=== PATIENT | male | born 1965 | race Caucasian/White ===

== ENCOUNTER 2023-07-12 22:17 | Inpatient (IN) | payer BC, SELFPAY ==
[2023-07-12] VITALS (7 sets, daily range): BP systolic 108–143; BP diastolic 77–92; BMI 29.3; BMI 29.2
[2023-07-12 16:58] LABS: % Basophils 0.4 % (0-2); % Eosinophils 0.1 % (0-6); % Immature Granulocytes 0.2 % (0-0.5); % Lymphocytes 17.7 % (20.5-51.1); % Monocytes 5.9 % (1.7-9.3); % Neutrophils 75.7 % (42.2-75.2); Absolute Lymphocytes 1.5 10^3/uL (1.2-3.4); Absolute Monocytes 0.5 10^3/uL (0.1-0.6); Absolute Neutrophils 6.3 10^3/uL (1.4-6.5); Hematocrit 41.5 % (39.0-52.0); Hemoglobin 14.7 g/dL (13.0-18.0); Mean Corp Hgb Conc. 35.4 g/dL (33.0-37.0); Mean Corpuscular Hgb 32.2 pg (27.0-31.0); Mean Platelet Volume 9.2 fL (7.4-10.4); Nucleated Red Blood Cells % 0 % (-); Platelet Count 250 10^3/uL (130-400); Red Blood Cell Count 4.56 10^6/uL (4.70-6.10); Red Cell Dist. Width 12.2 % (11.5-14.5); White Blood Cell Count 8.3 10^3/uL (4.8-10.8)
[2023-07-12 17:09] LABS: INR 1.01; PT 13.1 Sec (11.4-14.6)
[2023-07-12 17:24] LABS: Troponin I 0.014 ng/ml
[2023-07-12 17:27] LABS: ALT (SGPT) 42 U/L (0-50); AST (SGOT) 34 U/L (17-59); Albumin 4.9 g/dl (3.5-5.0); Alkaline Phosphatase 54 U/L (38-126); Blood Urea Nitrogen 19 mg/dl (9-20); Calcium 10.3 mg/dl (8.4-10.2); Carbon Dioxide 26 mmol/L (22-30); Chloride 99 mmol/L (98-107); Glucose 120 mg/dl (70-99); Potassium 5.4 mmol/L (3.5-5.1); Sodium 135 mmol/L (135-145); Total Bilirubin 0.9 mg/dl (0.2-1.3); Total Protein 7.7 g/dl (6.3-8.2); eGFR > 60.00
--- NOTE | 2023-07-12 20:15 | ED.GENMED ---
History of Present Illness
General
Chief Complaint: Chest Pain
Source: patient
Exam Limitations: none
Time Seen by Provider: 07/12/23 18:08
Nursing documentation reviewed up to this point in time: agreed with
Travel History
Have you had any contact with someone who has COVID-19?: No
Do you have any symptoms of coronavirus? Fever > 100 degrees, chills, cough, shortness of breath, sore throat, loss of taste or smell, muscle aches, or headache?: No
History of Present Illness
History of Present Illness:
57-year-old male with past medical history of CAD hypertension hyperlipidemia presenting to the emergency department today with concerns of chest pain for the past few weeks he has been needing nitroglycerin which has been a lot resolving symptoms
intermittently over the past few weeks but today required multiple doses and also had associated diaphoresis nausea and vomiting. Does have a history of CABG 2 years ago
Review of Systems
Review of Systems
Allergies reviewed?: Yes
All Other Systems: ROS reviewed and negative except as documented in HPI and ROS
Phy Exam
Physical Exam
Physical Exam:
GENERAL: Alert , in no apparent distress
EYE: pupils equal and reactive
NECK: Supple, no significant adenopathy.
ENT: o/p clr, mmm.
CARDIAC: Regular rate and rhythm .
LUNGS: Clear breath sounds bilaterally, no acute respiratory distress, no wheezes/rales/rhonchi
ABDOMEN: Soft, without focal tenderness, no r/g, no cvat
NEUROLOGICAL: Alert and oriented, no focal neuro deficits
SKIN: Warm and dry, skin intact.
MUSCULOSKELETAL: No edema, well perfused.
PSYCH: Normal and appropriate interaction.
Scores
Heart Score for Chest Pain Patients
STEMI patient?: No
History: Moderately Suspicious
ECG: Nonspecific Repolarization
Age: >45 - <65 years
Risk Factors: >/= 3 Risk Factors or History of CAD
Troponin: </= Normal Limit
Heart Score for Chest Pain Patients: 5
Heart Score Risk: 20.3% MACE over next 6 weeks
Course
Orders/Labs/Results
Orders:
Orders
07/12/23 16:33
EKG [Electrocardiogram (*1)] Urgent
Reason for Study: Chest Pain
EKG- Treatment ONCE
07/12/23 16:49
Complete Blood Count/With Diff Urgent
Comprehensive Metabolic Panel Urgent
PT/INR [Prothrombin Time] Urgent
Troponin I Urgent
07/12/23 19:41
EKG [Electrocardiogram (*1)] Urgent
Reason for Study: Chest Pain
EKG- Treatment ONCE
07/12/23 19:43
Troponin I Urgent
07/12/23 20:47
Admit/Transfer Patient As Directed
Co-Sign Provider:
Level of Care: Inpatient admission
Assign to:: Telemetry
Physician / Group: Racquel
Diagnosis: Unstable Angina
Reason for Telemetry: Chest Pain syndromes
Date to Stop Telemetry: 07/14/23
Time to Stop Telemetry: 11:00
Reason for Hospitalization: Cardiology consult, Heparin Drip
Expected length of stay greater than two midnights?: Yes
ELOS- Estimated Length of Stay in days: 3
I certify the patient meets the requirements for IP care: Yes
07/12/23 20:48
Code Status As Directed
Resuscitation Status: Full Code
07/12/23 20:59
Add On- LAB Routine
Tests Added?: BNP
07/12/23 21:05
Aspirin Chewable [Low Strength Aspirin] 182 mg PO NOW STA
07/12/23 21:11
Aspirin Chewable [Low Strength Aspirin] 162 mg PO NOW STA
07/14/23 11:00
DC Protocol for Telemetry ONCE
Abnormal Lab Results
07/12/23
16:49
RBC 4.56 L 10^6/uL
(4.70-6.10)
MCH 32.2 H pg
(27.0-31.0)
Neutrophils % 75.7 H %
(42.2-75.2)
Lymphocytes % 17.7 L %
(20.5-51.1)
Potassium 5.4 H mmol/L
(3.5-5.1)
Glucose 120 H mg/dl
(70-99)
Calcium 10.3 H mg/dl
(8.4-10.2)
07/12/23 16:49
07/12/23 16:49
Vital Signs
Initial and Last Documented VS:
Initial Vital Signs
Temp Pulse Resp BP Pulse Ox
98.9 F 75 18 133/92 98
07/12/23 16:42 07/12/23 16:42 07/12/23 16:42 07/12/23 16:42 07/12/23 16:42
Last Documented Vital Signs
Temp Pulse Resp BP Pulse Ox
98.9 F 72 18 126/86 96
07/12/23 16:42 07/12/23 21:00 07/12/23 21:00 07/12/23 20:01 07/12/23 21:00
MDM/Problems Addressed
MDM/Problems Addressed:
57-year-old male presenting to the emergency department today with concerns of chest discomfort intermittently initially over the past week or so has been taking nitro with relief today noticed worsening chest pressure with diaphoresis and nausea
took multiple doses of nitro to control symptoms. Does have a history of CABG 2 years ago. Initial EKG with T wave inversions V4 to V6 that were not present on previous EKG. Troponin negative with symptoms concerning for progressive anginal
symptoms. Plan to admit considering may represent unstable angina.
*Critical Care Note
Total Time (30-74mins, 75-104mins- exclusive of procedures): Not Applicable
ED Attending Note
-
Portions of this chart may have been created with voice recognition software.� Occasional wrong word or��sound alike� substitutions may have occurred due to the inherent limitations of voice recognition software.
Discharge Plan
Departure
Patient Disposition: Admit
Date of Disposition: 07/12/23
Time of Disposition: 21:15
Admit to: Telemetry
Admit to doctor: Htay
Presentation/result/management discussed w/ accepting MD/DO: Hospitalist
Patient with high blood pressure during this ER visit?: No
Condition: Good
Covid-19: Not Applicable
Discharge Problem:
Chest pain
Prescriptions:
No Action
Co Q-10
1 tab PO DAILY
Patient Comments:
unknown dose
Mvi, Adult
1 tab PO DAILY
Rogaine
1 appful topical DAILY
Patient Comments:
daily for 22 years, cutting back recently
acetaminophen 325 MG tablet
650 mg PO Q4HPRN PRN (Reason: mild pain,headache,temp >101F ) 0RF
aspirin 81 MG tablet,chewable
81 mg PO DAILY 0RF
cholecalciferol (vitamin D3) [Vitamin D3] 125 mcg (5,000 unit) Tablet
125 mcg PO DAILY
metoprolol tartrate 50 MG tablet
12.5 mg PO BID
magnesium Tablet
1 tab PO DAILY
potassium
1 tab PO DAILY
diphenhydramine HCl [Benadryl] 25 mg Capsule
25 mg PO PRN PRN (Reason: allergies)
ibuprofen 200 mg tablet
400 - 600 mg PO Q6HPRN PRN (Reason: moderate pain) Qty: 1 0RF
tramadol 50 mg tablet
50 mg PO Q6H PRN (Reason: severe pain) Qty: 10 0RF
Referrals:
UNKNOWN - PT DOES,NOT KNOW [Family Provider] -
Interventions
Interventions:
*Risk Screen - Suicide Last Done: 07/12/23 16:42
*General Assessment Last Done: 07/12/23 16:42
*Neglect/Abuse Screening Last Done: 07/12/23 16:42
ED- Fall Risk Assessment Last Done: 07/12/23 17:37
*ED COVID-19 Vaccine History Last Done: 07/12/23 16:42
ED- Cardiac Assessment Last Done: 07/12/23 17:37
Discharge Date and Time
Print Language: URDU
--- NOTE | 2023-07-12 20:17 | HPS.HSE ---
Family Physician
-
Family Physician: NOT KNOW UNKNOWN - PT DOES
Chief Complaint
-
Chest Pain, ECG Changes
History of Present Illness
Patient is a 57 y/o male past medical history of coronary artery disease s/p CABG in 2021, hypertension and hyperlipidemia who presents with chest pain. Patient reports daily episodes of chest pain over the past week. He reports sometimes chest
pains occurs with activity, but sometimes at rest. He reports taking nitro with improvement of his symptoms after about 20 minutes. He notes today he took the nitro which relieved his symptoms initially, but states pain recurred a few hours later.
Since the pain recurred so quickly he came to the emergency department for evaluation. He notes today's episode of chest pain was associated with some diaphoresis. He denies shortness of breath. Patient states he took an extra aspirin today due
to worsening symptoms.
Medical History
Past Medical History
Past Medical History: Reports Other
Additional Past Medical History:
Coronary Artery Disease
Essential Hypertension
Hyperlipidemia
Past Surgical History: Reports Other
Additional Past Surgical History:
Coronary Artery Bypass Graft
Microdiscectomy L4/L5
Tonsillectomy
Social History
Tobacco: Non-smoker
Alcohol: Occasional
Drug: Marijuana
Family History
Family History: Other (Father: CAD)
Allergies / Home Medications
Allergies reflects when Allergies were last updated in [facility].
Home Medications with original date entered in [facility]
Allergy/Medication List:
Allergies
Allergy/AdvReac Type Severity Reaction Status Date / Time
ragweed pollen Allergy Mild Runny nose Verified 07/12/23 16:42
codeine Allergy Unknown Verified 07/12/23 16:42
dog dander Allergy Swelling Verified 07/12/23 16:42
morphine AdvReac headache Verified 07/12/23 16:42
Home Medications
Co Q-10 1 tab PO DAILY Supplement 05/03/21
Mvi, Adult 1 tab PO DAILY Supplement 05/03/21
Rogaine 1 appful topical DAILY 05/03/21
acetaminophen 325 mg tablet 650 mg (2 x 325 mg) PO Q4HPRN PRN mild pain,headache,temp >101F 05/10/21
aspirin 81 mg chewable tablet 81 mg PO DAILY 05/10/21
cholecalciferol (vitamin D3) 125 mcg (5,000 unit) tablet (Vitamin D3) 125 mcg PO DAILY 01/25/23
metoprolol tartrate 50 mg tablet 12.5 mg PO BID 01/25/23
diphenhydramine HCl 25 mg capsule (Benadryl) 25 mg PO PRN PRN allergies 01/29/23
ibuprofen 200 mg tablet 400 - 600 mg (2 - 3 x 200 mg) PO Q6HPRN PRN moderate pain #1 tab 01/29/23
magnesium 1 tab PO DAILY 01/29/23
potassium 1 tab PO DAILY 01/29/23
tramadol 50 mg tablet 50 mg PO Q6H PRN severe pain #10 tabs 01/29/23
Review of Systems
-
A 12 point ROS was completed and negative except as noted: Yes
Constitutional: Denies Fever or Chills
Respiratory: Denies Cough or Trouble Breathing
Cardiac: Reports See HPI
Physical Exam
Vital Signs
Vital Signs
Temp Pulse Resp BP Pulse Ox
98.9 F 70 11 124/77 98
07/12/23 16:42 07/12/23 17:37 07/12/23 17:37 07/12/23 17:37 07/12/23 17:37
Physical Exam
General: Comfortable and Conversant
HEENT: Anicteric and Moist mucous membranes
Respiratory: Clear and Non Labored Respirations
Cardiac: S1/S2 and Regular Rhythm
GI: Soft and Non Tender
Rectal: Deferred by Provider
Musculoskeletal: No Clubbing, No Cyanosis and No Edema
Skin: Warm and Dry
Neuro: Awake, Alert, Oriented and Nonfocal/grossly intact
Psych: Calm
Laboratory Results
-
07/12/23 16:49
07/12/23 16:49
Laboratory Results
PT 13.1 Sec (11.4-14.6) 07/12/23 16:49
INR 1.01 07/12/23 16:49
Total Bilirubin 0.9 mg/dl (0.2-1.3) 07/12/23 16:49
AST 34 U/L (17-59) 07/12/23 16:49
ALT 42 U/L (0-50) 07/12/23 16:49
Alkaline Phosphatase 54 U/L (38-126) 07/12/23 16:49
Troponin I 0.014 ng/ml 07/12/23 16:49
Data Reviewed
-
Medical Tests (Nuc Med, Echo, EKG etc): Image Personally Visualized and interpreted (EKG)
Lab Data: Labs Reviewed by me
Impression/Plan
-
Chest Pain, suspect unstable angina
-Consult Cardiology
-Trend troponin
-Continue aspirin - Give additional 162mg now for total 324mg
-NPO after midnight for possible testing in AM
Hyperkalemia/Hypercalcemia, mild
-Stop potassium and calcium supplements
Essential Hypertension
-Continue metoprolol
Hyperlipidemia
-Patient reports he only takes his statin for the 2 weeks prior getting his blood work
-Resume high dose statin with Lipitor
DVT proph: Lovenox
Code Status: Full Code
[2023-07-12 20:26] LABS: Troponin I 0.016 ng/ml
--- NOTE | 2023-07-12 21:13 | W.PN.UPDATE ---
Update Note
Progress Note Update
This is an addendum to the H&P written by LOBO Dwyer on 07/12/2023.
Patient seen and examined independently with LOBO. 57-year-old male past medical history of CAD/NSTEMI status post CABG in 2021, hyperlipidemia, presenting with intermittent chest pressure for the past 9 days at rest which resolves with
nitroglycerin.
Chest is tender to palpation. EKG shows T wave inversions in leads V4 to V6. Slight elevation of troponin from 0.014-0.06. Likely unstable angina. Trend troponins, aspirin given, n.p.o. past midnight. Nitroglycerin for further chest pain.
Cardiology consulted. Labs show elevated potassium likely due to potassium supplementation. Hold potassium.
[2023-07-12] MEDS: LOW STRENGTH ASPIRIN 162 MG PO (21:24)
[2023-07-12 22:04] LABS: NT-proBNP 27.2 pg/ml
[2023-07-13] VITALS (18 sets, daily range): BP systolic 117–155; BP diastolic 70–106; BMI 28.8
[2023-07-13 03:21] LABS: Hemoglobin 15.4 g/dL (13.0-18.0); Mean Corp Hgb Conc. 34.2 g/dL (33.0-37.0); Mean Corpuscular Hgb 31.9 pg (27.0-31.0); Mean Corpuscular Volume 93.2 fL (80.0-94.0); Mean Platelet Volume 9.6 fL (7.4-10.4); Platelet Count 237 10^3/uL (130-400); Red Blood Cell Count 4.83 10^6/uL (4.70-6.10); Red Cell Dist. Width 12.3 % (11.5-14.5); White Blood Cell Count 8.4 10^3/uL (4.8-10.8)
[2023-07-13 03:49] LABS: Blood Urea Nitrogen 18 mg/dl (9-20); Calcium 10.3 mg/dl (8.4-10.2); Carbon Dioxide 24 mmol/L (22-30); Chloride 101 mmol/L (98-107); Estimated Creatinine Clearance 61 ml/min; Glucose 87 mg/dl (70-99); HDL Cholesterol 52 mg/dl; LDL Cholesterol, Calculated 55 mg/dl; Magnesium 2.2 mg/dl (1.6-2.3); Potassium 4.4 mmol/L (3.5-5.1); Sodium 137 mmol/L (135-145); Total Cholesterol 133 mg/dl (50-199); Triglyceride 134 mg/dl (10-149); Very Low Density Lipoprotein 26 mg/dl (0-30); eGFR > 60.00
[2023-07-13 04:04] LABS: Vitamin D, 25-OH*** 54.1 ng/mL (30-80)
[2023-07-13] MEDS: TOPROL XL 25 MG PO (08:44)
[2023-07-13] MEDS: LOW STRENGTH ASPIRIN 81 MG PO (08:44)
[2023-07-13 09:31] LABS: Glycohemoglobin (HgbA1c) 5.9 % (4.0-5.6)
--- NOTE | 2023-07-13 09:44 | CON.CAR ---
Addendum entered and electronically signed by Narinder Madison MD 07/13/23 11:42:
I saw and examined the patient.
The VENEER CUTTER's note was reviewed and I agree with the note.
57-year-old male with a history of coronary artery bypass grafting in 2021 who has had recurrent episodes of low-grade chest discomfort over the past week. Symptoms can last long periods of time or just last 10 to 20 minutes. He called his primary
orthopedic physician assistant and was given a prescription for nitroglycerin. He feels the nitroglycerin relieves his chest discomfort. He says within 20 minutes after he takes nitroglycerin the symptoms fully resolved. He was able to do some yard work this week.
He did some light yard work/mulching but states he did not took a nitroglycerin prior to doing so. Troponin up to 0.02 ECG without acute changes. Patient's had recurrent chest discomfort this morning. Patient has a history of underlying coronary
artery disease and coronary bypass grafting and has recurrent chest discomfort on a daily basis over the past week with report of improvement with nitroglycerin. Considering the above history, the high pretest probability and the possibility of
unstable symptoms plan for cardiac catheterization. Reviewed with patient who is also in agreement. Also reviewed with interventional cardiology.
Original Note:
Consultation
Consultation Request
Date/Time Consultation Requested: 07/12/23 23:30
Date/Time Consultation Performed: 07/13/23 09:00
Requesting Provider: Jael Henderson PA-C
Performing Provider: LUIS MANUEL Camargo for Dr. Madison
Reason for Consultation: Chest pain
Medical History
-
Chief Complaint: Chest pain
History of Present Illness:
Wan Garza is a 57-year-old male (known to Dr. Gus Fang, his primary orthopedic physician assistant), with coronary artery disease (CABG x 3 04/2021), dyslipidemia, and former smoker who presents with a chief complaint of chest discomfort. He had a CABG
here in April, with Dr. Escalera. He reports he has been feeling well until the past week. He reports having chest discomfort with activity. He is unable to describe the sensation. He called his orthopedic physician assistant. The plan was for
sublingual nitroglycerin until he could complete stress testing. He does receive relief with sublingual nitroglycerin after about 15 minutes. Yesterday, he became concerned because when he woke up he was in a pool of sweat. This is very abnormal
for him. He took a sublingual nitroglycerin. He reports he felt 'off' and did not eat all day. He has been taking short acting metoprolol in addition to long-acting metoprolol when he has to do any exertional activity hoping that will help him
avoid chest discomfort.
Past Medical History
Past Medical History: CAD and Hypercholesterolemia
Past Surgical History: Cardiac, Orthopedic, Tonsilectomy, Urological and Other (Robotic hernia repair)
Social History
Tobacco: Former Smoker
Alcohol: Occasional
Drug: None
Personal: Single
Living: Alone
Employment: Employed
Family History
Family History: Reviewed & Not Pertinent
Allergies / Home Medications
Allergy/AdvReac Type Severity Reaction Status Date / Time
codeine Allergy Unknown Verified 07/12/23 16:42
dog dander Allergy Swelling Verified 07/12/23 16:42
morphine Allergy headache Verified 07/12/23 21:13
ragweed pollen Allergy Runny nose Verified 07/12/23 21:13
�Medication �Instructions �Recorded �Confirmed �Type
coenzyme Q10 200 mg capsule (Co 200 mg PO DAILY Supplement ##0 05/03/21 07/12/23 History
Q-10)
multivitamin 1 tab PO DAILY Supplement ##0 05/03/21 07/12/23 History
cholecalciferol (vitamin D3) 125 125 mcg PO DAILY 01/25/23 07/12/23 History
mcg (5,000 unit) tablet (Vitamin
D3)
metoprolol tartrate 50 mg tablet 50 mg PO DAILY 01/25/23 07/12/23 History
ascorbic acid (vitamin C) 1,000 mg 1,000 mg PO DAILY 07/12/23 07/12/23 History
tablet (Vitamin C)
aspirin 81 mg chewable tablet 81 - 162 mg PO DAILY 07/12/23 07/12/23 History
atorvastatin 40 mg tablet 40 mg PO DAILY 07/12/23 07/12/23 History
magnesium 250 mg tablet 250 mg PO DAILY 07/12/23 07/12/23 History
metoprolol succinate 25 mg 25 mg PO DAILY 07/12/23 07/12/23 History
tablet,extended release 24 hr
nitroglycerin 0.4 mg sublingual 0.4 mg sublingual [id number] PRN 07/12/23 07/12/23 History
tablet chest pain
sildenafil 100 mg tablet 100 mg PO DAILY PRN ed 07/12/23 07/12/23 History
Review of Systems
-
History Source: Patient
All other systems: Negative unless noted
Constitutional: No Symptoms
EENT: No Symptoms
Respiratory: No Symptoms
Cardiac: No Symptoms
Abdomen/GI: No Symptoms
Physical Exam
Vital Signs
Temp Pulse Resp BP Pulse Ox
98.4 F 73 16 117/70 96
07/13/23 07:37 07/13/23 07:37 07/13/23 07:37 07/13/23 07:37 07/13/23 07:37
Lab Results
07/13/23 02:52
07/13/23 02:52
Troponin I 0.020 ng/ml 07/13/23 02:52
Zht-C-Nytftqzoutr Pept 27.2 pg/ml 07/12/23 19:43
Physical Exam
General: Well Developed, Well Nourished, No Apparent Distress and Comfortable
HEENT: Normocephalic, Anicteric and Moist Mucous Membranes
Respiratory: Clear and Non Labored Respirations
Cardiac: S1/S2 and Regular Rhythm; Negative Peripheral Edema
Breast: Deferred by me
GI: Soft, Non Tender, Non Distended and Normal Bowel Sounds
Rectal: Deferred by Provider
Genito-urinary: No Costovertebral Tender
Musculoskeletal: No Clubbing, No Cyanosis and No Edema
Skin: Warm and Dry
Neuro: AO x 3
Hematologic/Lymphatic: No Lymphadenopathy
Psych: Calm
Impression / Plan
-
Chest pain
-Reports less than 5 minutes of chest pain at approximately 8 AM this morning, resolved spontaneously
-Gets relief with SL NTG
-Troponin appear flat
CAD
-On ASA & beta efrem
-Some nonadherence with statin therapy
-CABG x 3 (SAMSON-LAD, SVG-GARO-OM, AO-SVG-PDA) 05/06/[address] Escalera
HLD, now back on statin, LDL 55, continue atorvastatin 40 mg
Pre-diabetes, Hgba1c 5.9%
Former smoker, continued cessation recommended
--- NOTE | 2023-07-13 11:20 | W.PN.HOSP.TC ---
Today's Communication/Plan
-
.
Assessment / Plan
Assessment / Plan
Physical Exam
General: Well Developed, Well Nourished, No Apparent Distress and Comfortable
HEENT: Normocephalic, Anicteric and Moist Mucous Membranes
Respiratory: Clear and Non Labored Respirations
Cardiac: S1/S2 and Regular Rhythm; Negative Peripheral Edema
GI: Soft, Non Tender, Non Distended and Normal Bowel Sounds
Genito-urinary: No Costovertebral Tender
Musculoskeletal: No Clubbing, No Cyanosis and No Edema
Skin: Warm and Dry
Neuro: AO x 3
Psych: Calm
#Chest Pain, suspect unstable angina
The patient gives good story for cardiac related angina. Troponin remained negative
c/w aspirin & BB.
Appreciate cardiology input.
# Hyperkalemia/Hypercalcemia, mild
K is 4.4 today
- will advise to decrease potassium and calcium supplements
# Essential Hypertension
-Continue metoprolol
#Hyperlipidemia
-Patient reports he only takes his statin for the 2 weeks prior getting his blood work
-Resume high dose statin with Lipitor
DVT proph: Lovenox
Code Status: Full Code
Total time spent to see patient, examine the patient on the floor, review data and lab results, discuss treatment plan with patient, nursing staff around 55 minutes
Anticipated Discharge: Within 24 hours
Subjective/Interval History
-
Date of Service: July 13, 2023
No chest pain this morning
No sob
Some ringing in left ear
Objective Data
-
Labs:
Laboratory Results
07/13/23
02:52
WBC 8.4
Hgb 15.4
Hct 45.0
Plt Count 237
Sodium 137
Potassium 4.4
Chloride 101
Carbon Dioxide 24
BUN 18
Creatinine 1.2
Glucose 87
Calcium 10.3 H
Vital Signs:
Vital Signs
Temp Pulse Resp BP Pulse Ox
98.4 F 73 16 117/70 96
07/13/23 07:37 07/13/23 07:37 07/13/23 07:37 07/13/23 07:37 07/13/23 07:37
I&O
07/12/23 07/13/23 07/14/23
06:59 06:59 06:59
Intake Total 480 / 480
Balance 480 / 480
[2023-07-13 11:46] LABS: Troponin I 0.018 ng/ml
[2023-07-13] MEDS: PROTONIX 40 MG PO (12:39)
[2023-07-13 14:19] LABS: ACT-LR - POC 337 Seconds (116-155)
--- NOTE | 2023-07-13 14:53 | ITS.CL.CATH ---
Primary Care Sales Representative - Catheterization
Cardiac Catheterization
Procedure Report:
CARDIAC CATHETERIZATION REPORT
Date of Procedure: 07/13/2023
Referring: Narinder Madison MD
Indication: Recurrent nitrate responsive chest discomfort with prior CABG x 3 (05/06/2021)
HEMODYNAMIC DATA
AO: 118/72
LV: 118/11
LEFT VENTRICULOGRAPHY: Normal left ventricular wall motion with EF 65%
CORONARY ANGIOGRAPHY
Dominance: Right
Left Main: 30% distal stenosis
LAD: Diffuse moderate to severe proximal and mid LAD disease. The distal LAD fills antegrade and via a widely patent CARRIE graft. The CARRIE graft touches down into the distal LAD with good runoff through a 70% stenosis approximately 20 mm distal to
the touchdown site. There is a 70% apical LAD stenosis at the bifurcation of the whale's tail branches. There is retrograde flow in the LAD from the CARRIE graft to supply multiple septal perforators and two medium size diagonal branches.
Circumflex: The circumflex gives rise to a small OM1 and a large OM 2 before continuing on in the AV groove to supply two medium sized left posterolateral branches. There is 50% stenosis in the midportion of OM 2-the distal vessel fills antegrade
and via a widely patent vein graft
RCA: The RCA is occluded in the midportion. A patent free GARO graft supplies the relatively small RPDA
Bypass grafts:
1. The left internal mammary graft to the LAD is widely patent
2. The saphenous vein graft to the large OM 2 is widely patent with excellent runoff
3. The free radial graft to the distal RCA is patent with runoff into a medium sized RPDA. The RPL branch appears diffusely diseased and significantly smaller than its appearance on the preop study from 2021
Angioplasty: At the conclusion of the diagnostic study we proceeded with stenting of the distal LAD lesion approximately 20 mm distal to the CARRIE graft touchdown site. Heparin was used for anticoagulation. Plavix 600 mg was administered the
procedure conclusion. A 6 Syrian 90 cm CARRIE guide was advanced to the CARRIE origin. A BMW wire was passed into the apical LAD. The stent was advanced to the lesion site and completely obstructed flow distal to the stent site consistent with a
significantly high-grade lesion. Direct stenting with a 3.0 x 12 Xience SIERRA was accomplished at 14 [place] and the stent was postdilated with a 3.0 NC trek to 16 [place]. The final angiographic result was outstanding. There were no procedural
complications.
Closure Device: 6 Syrian Angio-Seal RFA
Radiation (mGy): 414
DAP (cm2.Gy): 32.6
Fluoroscopy time: 5.1 minutes
CONCLUSIONS
1: Normal left ventricular function with EF 65%
2: Severe [place] multivessel CAD as described with patent SAMSON-LAD, free radial-distal RCA, and SVG-OM2 bypass grafts
3. Successful stenting of 70% distal LAD lesion using 3.0 x 12 Xience SIERRA with outstanding final result
4. Recommend dual antiplatelet therapy for 6-12 months and lifelong aspirin therapy
Copy to: Gus Fang MD, Sanju Montejo DO
Brian Barrera MD, [facility], [facility]
[2023-07-13] MEDS: NSS 1000 IV (15:15)
[2023-07-13] MEDS: LOVENOX 40 MG SC (17:35)
[2023-07-13] MEDS: LIPITOR 40 MG PO (17:36)
[2023-07-14 05:04] VITALS: BP 124/82
--- NOTE | 2023-07-14 05:09 | DOWNTIME ---
There was a [employer] Downtime on 07/14/2023 from 0100 to 07/14/2023 at 0439. Downtime documentation of patient's care, including medication administrations, has been reconciled in the electronic record per guidelines. Refer to the
patient's paper chart under the miscellaneous tab to see printed paper medication records and downtime forms.
[2023-07-14 05:18] VITALS: BMI 28.7
--- NOTE | 2023-07-14 05:30 | PTCARENOTE ---
Right groin site C/D/I w/ positive pedal pulses. Pt denies any chest pain. CAD packet given, education provided. Tele remains SR. Pt aware of POC, and can make needs known.
--- NOTE | 2023-07-14 05:30 | DOWNTIME ---
There was a [employer] Client [employer] Downtime on 07/14/2023 from 0100 to 07/14/2023 at 0439. Downtime documentation of patient's care, including medication administrations, has been reconciled in the electronic record per guidelines. Refer to the
patient's paper chart under the miscellaneous tab to see printed paper medication records and downtime forms.
[2023-07-14 05:36] LABS: Hematocrit 42.2 % (39.0-52.0); Hemoglobin 14.9 g/dL (13.0-18.0); Mean Corp Hgb Conc. 35.3 g/dL (33.0-37.0); Mean Corpuscular Hgb 32.8 pg (27.0-31.0); Mean Platelet Volume 9.4 fL (7.4-10.4); Platelet Count 220 10^3/uL (130-400); Red Blood Cell Count 4.54 10^6/uL (4.70-6.10); Red Cell Dist. Width 12.2 % (11.5-14.5); White Blood Cell Count 8.4 10^3/uL (4.8-10.8)
[2023-07-14 05:47] LABS: Blood Urea Nitrogen 15 mg/dl (9-20); Calcium 9.9 mg/dl (8.4-10.2); Carbon Dioxide 23 mmol/L (22-30); Chloride 101 mmol/L (98-107); Estimated Creatinine Clearance 57 ml/min; Glucose 108 mg/dl (70-99); HDL Cholesterol 45 mg/dl; LDL Cholesterol, Calculated 42 mg/dl; Potassium 4.3 mmol/L (3.5-5.1); Sodium 135 mmol/L (135-145); Total Cholesterol 115 mg/dl (50-199); Triglyceride 140 mg/dl (10-149); Very Low Density Lipoprotein 28 mg/dl (0-30); eGFR > 60.00
--- NOTE | 2023-07-14 06:18 | W.PN.HOSP.TC ---
Today's Communication/Plan
-
.dc
Assessment / Plan
Assessment / Plan
Physical Exam
General: Well Developed, Well Nourished, No Apparent Distress and Comfortable
HEENT: Normocephalic, Anicteric and Moist Mucous Membranes
Respiratory: Clear and Non Labored Respirations
Cardiac: S1/S2 and Regular Rhythm; Negative Peripheral Edema
GI: Soft, Non Tender, Non Distended and Normal Bowel Sounds
Genito-urinary: No Costovertebral Tender
Musculoskeletal: No Clubbing, No Cyanosis and No Edema
Skin: Warm and Dry
Neuro: AO x 3
Psych: Calm
#unstable angina
No recurrent pain. Feels better.
s/p stent of 70% distal LAD lesion with SIERRA on 07/13/23.
c/w aspirin & Plavix & Statin & BB.
Empiric PPI Tx.
Right groin, no swelling.
Appreciate cardiology input.
# Hyperkalemia/Hypercalcemia, mild
resolved.
# Essential Hypertension
-Continue metoprolol
#Hyperlipidemia
-Patient reports he only takes his statin for the 2 weeks prior getting his blood work
-Resume high dose statin with Lipitor
DVT proph: Lovenox
Code Status: Full Code
Total discharge time spent to see patient, examine the patient on the floor, review data and lab results, discuss discharge plan with patient, nursing staff around 65 minutes
Anticipated Discharge: Today
Subjective/Interval History
-
Date of Service: July 14, 2023
He is doing well
No chest pain
No sob
Objective Data
-
Labs:
Laboratory Results
07/14/23
05:14
WBC 8.4
Hgb 14.9
Hct 42.2
Plt Count 220
Sodium 135
Potassium 4.3
Chloride 101
Carbon Dioxide 23
BUN 15
Creatinine 1.3
Glucose 108 H
Calcium 9.9
Vital Signs:
Vital Signs
Temp Pulse Resp BP Pulse Ox
98.7 F 84 16 124/82 96
07/14/23 05:04 07/14/23 05:04 07/14/23 05:04 07/14/23 05:04 07/14/23 05:04
I&O
07/12/23 07/13/23 07/14/23
06:59 06:59 06:59
Intake Total 480 / 480 480 / 480
Balance 480 / 480 480 / 480
[2023-07-14 07:01] VITALS: BP 118/84
--- NOTE | 2023-07-14 08:10 | PTCARENOTE ---
Patient resting in bed this morning, right groin dressing is dry and intact with a strong right pedal pulse. Patient denies any chest pain or sob. Scheduled for echo today.
[2023-07-14] MEDS: LOW STRENGTH ASPIRIN 81 MG PO (09:02)
[2023-07-14] MEDS: PLAVIX 75 MG PO (09:02)
[2023-07-14] MEDS: FLUSH (NSS) 1 FLUSH IV (09:03)
[2023-07-14] MEDS: PROTONIX 40 MG PO (09:03)
[2023-07-14] MEDS: TOPROL XL 25 MG PO (09:03)
--- NOTE | 2023-07-14 09:52 | CM ---
Reviewed chart. Met with Mr. Garza to review discharge plans. He states prior to admission he resides alone in a one story home with one step to enter. He states prior to admission he was independent with ambulation and adls. He states he
does not have nay DME in the home. He states he has a prescription plan and uses [facility]. Medical work-up in progress. The discharge plan is to return home when medically stable.
--- NOTE | 2023-07-14 10:44 | W.DCSUMMARY ---
Discharge Summary
Discharge Data
Date of Admission: 07/12/23
Date of Discharge: 07/14/23
-
Pending Results: No
Hospital Course
57 years old male admitted with recurrent chest pain that was responsive to nitroglycerin tablet. He did not have elevation troponin. Electrocardiogram was not suggestive of acute ischemia. Patient was evaluated by human resources assistant. Patient had
history of coronary artery disease. He underwent left heart catheterization through right groin area with stenting of 70% stenosis of left anterior descending artery with drug-eluting stent by Dr Barrera on 07/13/23. Open Claims Representative recommended dual
antiplatelet therapy for 6 to 12 months and lifelong aspirin therapy. Patient tolerated procedure well. He did not have recurrent chest pain. He was also advised to try Protonix and follow-up with his primary care doctor. He remained
hemodynamically stable and was discharged in a stable condition.
Discharge Plan
-
Patient Disposition: Home (Routine Discharge)
Discharge Diagnosis/Procedures: Unstable angina, angioplasty and stent to Left Anterior Descending artery
Possible gastroesophageal reflux disease, trial of Protonix and follow-up with your primary care doctor
Diet: Low Cholesterol and Low Sodium
Driving Restrictions: No driving for 24 hours
Other Services: Cardiac Rehab
Stand Alone Forms: DC Instructions- Cath/EP Lab
Referrals:
Sanju Montejo DO [Non-Admitting Privileges] - in one to two weeks
Gus Fang MD [Active] - in three to four weeks (Cardiology followup)
Prescriptions:
New
clopidogrel 75 mg Tablet
75 mg PO DAILY Qty: 30 0RF
pantoprazole 40 mg Tablet,Delayed Release (/Ec)
40 mg PO DAILY Qty: 30 0RF
Continued
coenzyme Q10 [Co Q-10] 200 mg Capsule
200 mg PO DAILY Qty: 0
multivitamin Tablet
1 tab PO DAILY Qty: 0
cholecalciferol (vitamin D3) [Vitamin D3] 125 mcg (5,000 unit) Tablet
125 mcg PO DAILY
atorvastatin 40 mg tablet
40 mg PO DAILY
Patient Comments:
07/12/2023: Will only take with Co Q-10
ascorbic acid (vitamin C) [Vitamin C] 1,000 mg Tablet
1,000 mg PO DAILY
sildenafil 100 mg tablet
100 mg PO DAILY PRN (Reason: ed)
nitroglycerin 0.4 mg tablet, sublingual
0.4 mg sublingual [id number] PRN (Reason: chest pain)
Patient Comments:
07/12/2023: took a previous dose @ 1130
magnesium 250 mg Tablet
250 mg PO DAILY
metoprolol succinate 25 mg tablet extended release 24 hr
25 mg PO DAILY
aspirin 81 MG tablet,chewable
81 mg PO DAILY Qty: 0 0RF
Discharge Orders:
Discharge Patient (As Directed); Ordered 07/14/23
Ordered By: Abbey Massey
Care Plan Goals
Care Plan Goals:
Problem: Readiness for enhanced knowledge related to diagnosis and treatment plan
Goal: Understand your diagnosis and treatment plan needs, including medications if applicable.
Instructions: Know your diagnosis, underlying causes and treatment plan options, including medications if applicable. Consult with your health care team to learn about your diagnosis and treatment plan, including medications if applicable.
Discharge Date and Time
Print Language: NEPALI
--- NOTE | 2023-07-14 10:59 | W.PN.CD ---
Today's Communication / Plan
-
home on DAPT/ppi
ARB as an outpatient if bp remains high
Impression / Plan
-
CP:
-may have been angina but will add ppi given distal lesion, DAPT
-he is feeling better this am
CAD
-On ASA & beta efrem
-reports low bp at home if still elevated on follow up will add arb
-Some nonadherence with statin therapy
-CABG x 3 (SAMSON-LAD, SVG-GARO-OM, AO-SVG-PDA) 05/06/[address] Escalera
-07/13/23 Successful stenting of 70% distal LAD lesion using 3.0 x 12 Xience SIERRA with outstanding final result
HLD, now back on statin, LDL 55, continue atorvastatin 40 mg
Pre-diabetes, Hgba1c 5.9%
Former smoker, continued cessation recommended
Subjective:
-he is feeling much better today
-he had no cp or sob.
CARDIAC CATHETERIZATION REPORT
Date of Procedure: 07/13/2023
Referring: Narinder Madison MD
Indication: Recurrent nitrate responsive chest discomfort with prior CABG x 3 (05/06/2021)
HEMODYNAMIC DATA
AO: 118/72
LV: 118/11
LEFT VENTRICULOGRAPHY: Normal left ventricular wall motion with EF 65%
CORONARY ANGIOGRAPHY
Dominance: Right
Left Main: 30% distal stenosis
LAD: Diffuse moderate to severe proximal and mid LAD disease. The distal LAD fills antegrade and via a widely patent CARRIE graft. The CARRIE graft touches down into the distal LAD with good runoff through a 70% stenosis approximately 20 mm distal to
the touchdown site. There is a 70% apical LAD stenosis at the bifurcation of the whale's tail branches. There is retrograde flow in the LAD from the CARRIE graft to supply multiple septal perforators and two medium size diagonal branches.
Circumflex: The circumflex gives rise to a small OM1 and a large OM 2 before continuing on in the AV groove to supply two medium sized left posterolateral branches. There is 50% stenosis in the midportion of OM 2-the distal vessel fills antegrade
and via a widely patent vein graft
RCA: The RCA is occluded in the midportion. A patent free GARO graft supplies the relatively small RPDA
Bypass grafts:
1. The left internal mammary graft to the LAD is widely patent
2. The saphenous vein graft to the large OM 2 is widely patent with excellent runoff
3. The free radial graft to the distal RCA is patent with runoff into a medium sized RPDA. The RPL branch appears diffusely diseased and significantly smaller than its appearance on the preop study from 2021
Angioplasty: At the conclusion of the diagnostic study we proceeded with stenting of the distal LAD lesion approximately 20 mm distal to the CARRIE graft touchdown site. Heparin was used for anticoagulation. Plavix 600 mg was administered the
procedure conclusion. A 6 [place] 90 cm CARRIE guide was advanced to the CARRIE origin. A BMW wire was passed into the apical LAD. The stent was advanced to the lesion site and completely obstructed flow distal to the stent site consistent with a
significantly high-grade lesion. Direct stenting with a 3.0 x 12 Xience SIERRA was accomplished at 14 [place] and the stent was postdilated with a 3.0 NC trek to 16 [place]. The final angiographic result was outstanding. There were no procedural
complications.
Closure Device: 6 [place] Angio-Seal RFA
CONCLUSIONS
1: Normal left ventricular function with EF 65%
2: Severe makah multivessel CAD as described with patent SAMSON-LAD, free radial-distal RCA, and SVG-OM2 bypass grafts
3. Successful stenting of 70% distal LAD lesion using 3.0 x 12 Xience SIERRA with outstanding final result
4. Recommend dual antiplatelet therapy for 6-12 months and lifelong aspirin therapy
Physical Exam
Vital Signs/Labs
Vital Signs
Temp Pulse Resp BP Pulse Ox
98.5 F 76 16 118/84 95
07/14/23 07:00 07/14/23 08:00 07/14/23 07:00 07/14/23 07:01 07/14/23 07:00
07/13/23 07/14/23 07/15/23
06:59 06:59 06:59
Actual Weight 80.824 kg 80.6 kg
07/14/23 05:14
07/14/23 05:14
PT 13.1 Sec (11.4-14.6) 07/12/23 16:49
INR 1.01 07/12/23 16:49
Magnesium 2.2 mg/dl (1.6-2.3) 07/13/23 02:52
Triglycerides 140 mg/dl (10-149) 07/14/23 05:14
LDL Cholesterol, Calc 42 mg/dl 07/14/23 05:14
VLDL Cholesterol, Calc 28 mg/dl (0-30) 07/14/23 05:14
HDL Cholesterol 45 mg/dl 07/14/23 05:14
07/12/23
19:43
Wnr-E-Yahjaswgspm Pept 27.2
LAB Results
07/12/23 07/12/23 07/13/23
16:49 19:43 02:52
Troponin I 0.014 0.016 0.020
07/13/23
11:16
Troponin I 0.018
Physical Exam
Constitutional: No acute distress
Cardiovascular: Rhythm & rate is regular, Pedal edema is absent, JVD pressure is normal, Systolic murmur absent and Diastolic murmur absent
Respiratory: Respiratory effort normal, Lungs clear to auscul., Wheeze Absent, Crackles Absent and Rhonchi Absent
Neuro/Psych: AO x 3
Other: Cath Site (RFA well healed no hematoma)
Data Reviewed
-
Date of Service: July 14, 2023
Medical Tests (PFT, Pathology etc): Discussed with Physician (Dr Massey, ok to discharge from our perspective, would add ppi)
[2023-07-14 11:33] VITALS: BP 142/96
--- NOTE | 2023-07-14 12:16 | PTCARENOTE ---
Echo done, patient seen by cardiology and ok for discharge. Reviewed discharge instructions, importance of compliance with plavix and follow up appointments, and he states his understanding. Patient awaiting ride home.
== END 2023-07-14 13:48 | disposition home or self-care (01) | DRG 322 ==
LOC: IVU 22:17
PROVIDERS: Internal Medicine Cardiovascular Disease; Nurse Practitioner; Nurse Practitioner Gerontology; Physician Assistant; Physician Assistant Medical; ADMITTING PHYSICIAN Hospitalist; ATTENDING PHYSICIAN Internal Medicine; EMERGENCY PHYSICIAN Emergency Medicine; OTHER PHYSICIAN Internal Medicine Cardiovascular Disease
PROC: B2111ZZ Fluoroscopy of Multiple Coronary Arteries using Low Osmolar Contrast (ICD-10-PCS; 2023-07-13)
PROC: 4A023N7 Measurement of Cardiac Sampling and Pressure, Left Heart, Percutaneous Approach (ICD-10-PCS; 2023-07-13)
PROC: 027034Z Dilation of Coronary Artery, One Artery with Drug-eluting Intraluminal Device, Percutaneous Approach (ICD-10-PCS; 2023-07-13)
PROC: B2151ZZ Fluoroscopy of Left Heart using Low Osmolar Contrast (ICD-10-PCS; 2023-07-13)
DX: I25.110 Atherosclerotic heart disease of native coronary artery with unstable angina pectoris (principal); Z87.891 Personal history of nicotine dependence; Z79.82 Long term (current) use of aspirin; E78.00 Pure hypercholesterolemia, unspecified; E87.5 Hyperkalemia; E83.52 Hypercalcemia; I10 Essential (primary) hypertension
CPT/HCPCS: 80048; 80053; 80061; 82306; 83036; 83735; 83880; 84484; 85025; 85027; 85347; 85610; 93005; 93306; 93459; 99285; C1725; C1760; C1769; C1874; C1887; C9600; Q9967

== ENCOUNTER 2023-08-05 18:49 | Emergency (ER) | payer BC, SELFPAY ==
[2023-08-05 18:52] VITALS: BP 149/88
[2023-08-05 19:12] LABS: % Basophils 0.4 % (0-2); % Eosinophils 1.1 % (0-6); % Immature Granulocytes 0.4 % (0-0.5); % Lymphocytes 24.9 % (20.5-51.1); % Monocytes 8.5 % (1.7-9.3); % Neutrophils 64.7 % (42.2-75.2); Absolute Eosinophils 0.1 10^3/uL (0-0.7); Absolute Lymphocytes 1.8 10^3/uL (1.2-3.4); Absolute Monocytes 0.6 10^3/uL (0.1-0.6); Absolute Neutrophils 4.6 10^3/uL (1.4-6.5); Hematocrit 40.3 % (39.0-52.0); Hemoglobin 14.2 g/dL (13.0-18.0); Mean Corp Hgb Conc. 35.2 g/dL (33.0-37.0); Mean Corpuscular Hgb 31.9 pg (27.0-31.0); Mean Corpuscular Volume 90.6 fL (80.0-94.0); Mean Platelet Volume 9.1 fL (7.4-10.4); Nucleated Red Blood Cells % 0 % (-); Platelet Count 241 10^3/uL (130-400); Red Blood Cell Count 4.45 10^6/uL (4.70-6.10); Red Cell Dist. Width 12.4 % (11.5-14.5); White Blood Cell Count 7.2 10^3/uL (4.8-10.8)
[2023-08-05 19:21] LABS: INR 0.98
[2023-08-05 19:22] LABS: APTT 29.7 Sec (23.4-35.0)
[2023-08-05 19:27] LABS: ALT (SGPT) 44 U/L (0-50); AST (SGOT) 30 U/L (17-59); Albumin 4.8 g/dl (3.5-5.0); Alkaline Phosphatase 52 U/L (38-126); Blood Urea Nitrogen 16 mg/dl (9-20); Calcium 10.1 mg/dl (8.4-10.2); Carbon Dioxide 23 mmol/L (22-30); Chloride 103 mmol/L (98-107); Glucose 108 mg/dl (70-99); Potassium 4.8 mmol/L (3.5-5.1); Sodium 136 mmol/L (135-145); Total Bilirubin 0.8 mg/dl (0.2-1.3); Total Protein 7.6 g/dl (6.3-8.2); eGFR > 60.00
[2023-08-05 19:36] LABS: Troponin I < 0.012 ng/ml
[2023-08-05 22:15] VITALS: BP 131/89; BMI 31.1
--- NOTE | 2023-08-05 23:12 | ED.GENMED ---
History of Present Illness
General
Chief Complaint: Chest Pain
Source: patient
Exam Limitations: none
Time Seen by Provider: 08/05/23 22:31
Travel History
Have you had any contact with someone who has COVID-19?: No
Do you have any symptoms of coronavirus? Fever > 100 degrees, chills, cough, shortness of breath, sore throat, loss of taste or smell, muscle aches, or headache?: No
History of Present Illness
History of Present Illness:
This is a 58 year old male that comes in with c/o chest pain. States that 22 days ago he had a stent placed here. States that for 2 weeks after this he had no angina. Then the last 4 days he has pain in the left chest that comes and goes. States
that Wednesday night is lasted for about 30 min after eating a salad. States that for 10-20 min it would go away and the n1 hour later come back. On Wednesday in the morning he took a nitro and it went away. States that the rest of the day he was
fine. Today at 12:30pm he started with pain again for about 45 min and the it went away. Then at 3pm he took a nitro for chest pain again. States that at this time it is very mild. Denies any fever, chills, SOB, abd pain, nausea, vomiting, diarrhea,
headache, dizziness, urinary burning.
Past History
Past History
ED Past Medical History: CAD, Cancer (Skin CA), HTN, Hypercholesterolemia and Other (Gloria pains)
ED Past Surgical History: Cardiac (Bypass, Stent) and Tonsilectomy
Social History
Tobacco: Non-smoker
Alcohol: Occasional
Personal: Single
Review of Systems
Review of Systems
All Other Systems: ROS reviewed and negative except as documented in HPI and ROS
Constitutional: Reports no symptoms; Denies fever or chills
EENT: Reports no symptoms
Respiratory: Denies cough or trouble breathing
Cardiac: Reports chest pain
ABD/GI: Reports no symptoms; Denies abdominal pain, nausea, vomiting or diarrhea
: Reports no symptoms; Denies dysuria, frequency or urgency
Musculoskeletal: Reports no symptoms
Skin: Reports no symptoms
Neurological: Reports no symptoms; Denies dizzy or headache
Psychiatric: Reports no symptoms
Phy Exam
General Physical Exam
General Presentation: well appearing and no apparent distress
General age: appears stated age
General Skin: warm and dry
General Habitus: normal
General Mental: alert
General Hydration: appears well hydrated
ENT Exam
ENT Exam: TM's normal, pharynx normal and neck supple
Eye Exam
Eye Exam: EOMI
Cardiovascular Exam
Cardiovascular Exam: regular rate/rhythm, no edema and normal peripheral pulses
Pulmonary Exam
Pulmonary Exam: lungs clear, no respiratory distress, no rales, chest non tender, no crackles, no rhonchi, no wheezing and no cough
Gastrointestinal Exam
Gastrointestinal Exam: normal bowel sounds, non tender, soft, no organomegaly, no pulsatile mass and non distended
Musculoskeletal Exam
Musculoskeletal Exam: full ROM and no edema
Skin Exam
Skin Exam: normal color, warm/dry, no rash and no petechia
Psychiatric Exam
Psychiatric Exam: normal mood/affect
Scores
Heart Score for Chest Pain Patients
STEMI patient?: No
History: Slightly or Non-Suspicious
ECG: Normal
Age: >45 - <65 years
Risk Factors: >/= 3 Risk Factors or History of CAD
Troponin: </= Normal Limit
Heart Score for Chest Pain Patients: 3
Heart Score Risk: 2.5% MACE over next 6 weeks
Course
Orders/Labs/Results
Orders:
Orders
08/05/23 18:55
Electrocardiogram (*1) Urgent
Reason for Study: Chest Pain
EKG- Treatment ONCE
08/05/23 19:05
Complete Blood Count/With Diff Urgent
Comprehensive Metabolic Panel Urgent
Protime/PTT Urgent
Troponin I Urgent
08/05/23 23:11
Electrocardiogram (*1) Urgent
Reason for Study: Chest Pain
Other Reason for Exam: Repeat with Troponin
EKG- Treatment ONCE
Troponin I Urgent
CR Chest - 2 Views Urgent
Comment:
Reason For Exam: Chest pain
Abnormal Lab Results
08/05/23
19:05
RBC 4.45 L 10^6/uL
(4.70-6.10)
MCH 31.9 H pg
(27.0-31.0)
Glucose 108 H mg/dl
(70-99)
08/05/23 19:05
08/05/23 19:05
Glucose nonfasting, PT 13.0 with INR 0.98, PTT 29.7, Troponin <0.012
Second Troponin <0.012
Vital Signs
Initial and Last Documented VS:
Initial Vital Signs
Temp Pulse Resp BP Pulse Ox
98.6 F 65 18 149/88 97
08/05/23 18:52 08/05/23 18:52 08/05/23 18:52 08/05/23 18:52 08/05/23 18:52
Last Documented Vital Signs
Temp Pulse Resp BP Pulse Ox
98.6 F 64 20 119/81 97
08/05/23 18:52 08/05/23 23:47 08/05/23 23:47 08/05/23 23:47 08/05/23 23:47
MDM/Problems Addressed
Differential Diagnosis Includes:
Angina, CAD
MDM/Problems Addressed:
This is a 58 year old male that comes in with c/o chest pain. States that he had a stent placed 22 days ago and was good for 2 weeks. Then he started with chest pain on and off. State that he has used Nitro twice recently with some relief and then
the pain comes back.
Will get labs, chest X-ray. , Explained to patient that he needs to follow up with his Land Management Supervisor tomorrow if the second troponin is normal. Patient is on Plavix and Aspirin.
Repeat ECG: rate 66, NSR, NOrmal axis. NOrmal QRS, Negative for ischemia. Nonspecific T wave inversion. Checked by Dr. Newman
Back into see patient. Explained that his Second Troponin is also normal. Will have patient follow up with his research anthropologist. Patient to return with any concerns. Explained that this may be due to the stent settling in.
Chronic conditions affecting care: CAD
Acute Exacerbation and/or Progression of Chronic Illness: CAD
*Radiology
Radiology exam reviewed: preliminary read by ED provider (Chest- Negative for active disease. )
*Pulse Oximetry
Patient hypoxic: no
*EKG
Interpreted by ED Provider?: Yes
Heart Rate: 60
Rate: normal
Rhythm: sinus
[place]: normal axis
Interval: normal interval
QRS Pattern: normal QRS
Ischemia: T-wave inversion (III, V5, V6)
*Cork Grinder Interpretation
Rate: normal
Heart Rate: 66
Rhythm: sinus
*Critical Care Note
Total Time (30-74mins, 75-104mins- exclusive of procedures): Not Applicable
ED Attending Note
-
Portions of this chart may have been created with voice recognition software.� Occasional wrong word or��sound alike� substitutions may have occurred due to the inherent limitations of voice recognition software.
Discharge Plan
Departure
Patient Disposition: Home (Routine Discharge)
Date of Disposition: 08/06/23
Time of Disposition: 01:11
Patient with high blood pressure during this ER visit?: No
Condition: Good
Covid-19: Not Applicable
Discharge Problem:
Chest pain
Instructions: Chest pain, Chest Pain NON-DHP Land Management Supervisor Follow Up
Prescriptions:
No Action
coenzyme Q10 [Co Q-10] 200 mg Capsule
200 mg PO DAILY Qty: 0
multivitamin Tablet
1 tab PO DAILY Qty: 0
cholecalciferol (vitamin D3) [Vitamin D3] 125 mcg (5,000 unit) Tablet
125 mcg PO DAILY
atorvastatin 40 mg tablet
40 mg PO DAILY
Patient Comments:
07/12/2023: Will only take with Co Q-10
ascorbic acid (vitamin C) [Vitamin C] 1,000 mg Tablet
1,000 mg PO DAILY
sildenafil 100 mg tablet
100 mg PO DAILY PRN (Reason: ed)
nitroglycerin 0.4 mg tablet, sublingual
0.4 mg sublingual [id number] PRN (Reason: chest pain)
Patient Comments:
07/12/2023: took a previous dose @ 1130
magnesium 250 mg Tablet
250 mg PO DAILY
metoprolol succinate 25 mg tablet extended release 24 hr
25 mg PO DAILY
clopidogrel 75 mg Tablet
75 mg PO DAILY Qty: 30 0RF
pantoprazole 40 mg Tablet,Delayed Release (Dr/Ec)
40 mg PO DAILY Qty: 30 0RF
aspirin 81 MG tablet,chewable
81 mg PO DAILY Qty: 0 0RF
Referrals:
Brian Barrera MD [Active] - As needed
NONE,* [Family Provider] -
Activity Restrictions/Additional Instructions:
As discussed, your blood work is normal along with both Troponin. Your Chest x-ray is normal. Please follow up with your Land Management Supervisor tomorrow. You have also been seen here by [facility] and you have been given the name of the Doctor. IF
YOU HAVE INCREASED OR CHANGING PAIN, OR YOU HAVE ANY OTHER CONCERNS PLEASE RETURN TO THE EMERGENCY ROOM.
Interventions
Interventions:
*Risk Screen - Suicide Last Done: 08/05/23 18:52
*General Assessment Last Done: 08/05/23 18:52
*Neglect/Abuse Screening Last Done: 08/05/23 18:52
ED- Fall Risk Assessment Last Done: 08/05/23 22:17
*ED COVID-19 Vaccine History Last Done: 08/05/23 18:52
ED- Cardiac Assessment Last Done: 08/05/23 22:17
Discharge Date and Time
Print Language: UKRAINIAN
[2023-08-05 23:47] VITALS: BP 119/81
[2023-08-06 00:44] LABS: Troponin I < 0.012 ng/ml
[2023-08-06 01:24] VITALS: BP 132/86
== END 2023-08-06 01:30 | disposition home or self-care (01) ==
LOC: EMR 18:49
PROVIDERS: Clinical Nurse Specialist Family Health; EMERGENCY PHYSICIAN Emergency Medicine
DX: R07.89 Other chest pain (principal); I25.10 Atherosclerotic heart disease of native coronary artery without angina pectoris; I10 Essential (primary) hypertension; E78.00 Pure hypercholesterolemia, unspecified
CPT/HCPCS: 99283; 71046; 80053; 84484; 85025; 85610; 85730; 93005

== ENCOUNTER → 2023-08-24 11:36 | Outpatient (REF) | payer BC, SELFPAY | LOC: DHCBC/DCA 11:36 | PROVIDERS: ATTENDING PHYSICIAN Internal Medicine Clinical Cardiac Electrophysiology; FAMILY PHYSICIAN Family Medicine | DX: R07.9 Chest pain, unspecified (principal) | CPT/HCPCS: 78452; 93017; A9500; J2785 ==

== ENCOUNTER 2024-01-15 23:22 | Inpatient (IN) | payer BC, SELFPAY ==
[2024-01-15 19:21] VITALS: BP 150/94
[2024-01-15 20:00] VITALS: BP 159/96
--- NOTE | 2024-01-15 20:02 | ED.GENMED ---
History of Present Illness
General
Chief Complaint: Abdominal Pain
Source: patient
Exam Limitations: none
Time Seen by Provider: 01/15/24 19:37
History of Present Illness
History of Present Illness:
This is a 58 year old male that comes in with c/o RLQ abd pain. States that this started last night and now the pain is starting to go across his lower abd. States that the pain has been constant. States that he is vomiting and nauseated. States
that he had a fever of 101 at home. Denies chills, chest pain, SOB, diarrhea, headache, dizziness, urinary burning.
Past History
Past History
ED Past Medical History: CAD, Cancer (Skin CA), HTN, Hypercholesterolemia and Other (Back pains)
ED Past Surgical History: Cardiac (Bypass, Stent), Orthopedic (Microdiscectomy L4-L5) and Tonsilectomy
Social History
Tobacco: Non-smoker
Alcohol: None
Personal: Single
Living: alone
Review of Systems
Review of Systems
All Other Systems: ROS reviewed and negative except as documented in HPI and ROS
Constitutional: Reports fever; Denies chills
EENT: Reports no symptoms
Respiratory: Reports no symptoms; Denies cough or trouble breathing
Cardiac: Reports no symptoms; Denies chest pain
ABD/GI: Reports abdominal pain, nausea and vomiting; Denies diarrhea
: Reports no symptoms; Denies dysuria, frequency or urgency
Musculoskeletal: Reports no symptoms
Skin: Reports no symptoms
Neurological: Reports no symptoms; Denies dizzy or headache
Psychiatric: Reports no symptoms
Phy Exam
General Physical Exam
General Presentation: mild distress
General age: appears stated age
General Skin: warm and dry
General Habitus: normal
General Mental: alert
General Hydration: dry mucous membranes
ENT Exam
ENT Exam: TM's normal, pharynx normal and neck supple
Eye Exam
Eye Exam: EOMI
Cardiovascular Exam
Cardiovascular Exam: regular rate/rhythm, no edema, no murmur and normal peripheral pulses
Pulmonary Exam
Pulmonary Exam: lungs clear, no respiratory distress, no rales, chest non tender, no crackles, no rhonchi, no wheezing and no cough
Gastrointestinal Exam
Gastrointestinal Exam: normal bowel sounds, soft, no organomegaly, no pulsatile mass, non distended and tender (Right lower quadrant abd pain with palpation )
Musculoskeletal Exam
Musculoskeletal Exam: full ROM and no edema
Skin Exam
Skin Exam: normal color, warm/dry, no rash and no petechia
Psychiatric Exam
Psychiatric Exam: normal mood/affect
Course
Orders/Labs/Results
Orders:
Orders
01/15/24 20:01
CT Abd/Pel (IV only)-DH only Urgent
Comment:
Reason For Exam: RLQ abd pain
IV Insert/Care/Rem.- Treatment PRN
Urinalysis Reflex To Culture Urgent
0.9% Sodium Chloride 1000 ml [Nss] 1,000 ml IV BOLUS
Ketorolac [Toradol] 30 mg IM NOW STA
Ondansetron Injectable [Zofran] 4 mg IV NOW STA
01/15/24 20:20
Complete Blood Count/With Diff Urgent
Comprehensive Metabolic Panel Urgent
Lipase Urgent
01/15/24 20:24
Ketorolac [Toradol] 30 mg IV NOW STA
01/15/24 22:15
Piperacillin/Tazo 3.375 Gram [Zosyn] 3.375 gram in 50 ml IV NOW
01/15/24 22:22
HYDROmorphone [Dilaudid] 1 mg IV NOW STA
Abnormal Lab Results
01/15/24
20:20
WBC 12.2 H 10^3/uL
(4.8-10.8)
MCH 31.1 H pg
(27.0-31.0)
Abs Immat Gran (auto) 0.1 H 10^3/uL
(0-0.05)
Absolute Neuts (auto) 10.6 H 10^3/uL
(1.4-6.5)
Absolute Lymphs (auto) 0.7 L 10^3/uL
(1.2-3.4)
Absolute Monos (auto) 0.9 H 10^3/uL
(0.1-0.6)
Neutrophils % 86.6 H %
(42.2-75.2)
Lymphocytes % 5.8 L %
(20.5-51.1)
Sodium 132 L mmol/L
(135-145)
Chloride 92 L mmol/L
(98-107)
Glucose 157 H mg/dl
(70-99)
01/15/24 20:20
01/15/24 20:20
Leukocytosis, Sodium slightly low. Chloride low. Hyperglycemia. Lipase normal at 38
Vital Signs
Initial and Last Documented VS:
Initial Vital Signs
Temp Pulse Resp BP Pulse Ox
98.9 F 80 26 150/94 96
01/15/24 19:21 01/15/24 19:21 01/15/24 19:21 01/15/24 19:21 01/15/24 19:21
Last Documented Vital Signs
Temp Pulse Resp BP Pulse Ox
99.2 F 83 12 154/94 99
01/15/24 20:34 01/15/24 21:00 01/15/24 21:00 01/15/24 21:00 01/15/24 20:00
MDM/Problems Addressed
Differential Diagnosis Includes:
Appendicitis, gallbladder disease
MDM/Problems Addressed:
This is a 58 year old male that comes in with c/o abd pain. States that this started last night and has continued. Patient is vomiting and has a fever,
will get labs and CT scan.
Back into see patient. Explained that his CT shows that he has a perforated appendicitis. Dr Elena notified and he will be on consult. Patient to go to Hospitalist. IV antibiotic ordered. Hospitalist notified.
Chronic conditions affecting care: CAD
Acute Exacerbation and/or Progression of Chronic Illness:
NA
*Radiology
Radiology exam reviewed: radiology read reviewed (CT night hawk- Perforated acutte appendicitis with a fluid-filled and dilated perforated appendix measuring up to 18mm, with extensive surrounding edema and inflammatory stranding that tracks along
the right paracolic gutter and perinephric fascia, and with intraperitoneal free air seen both along ) and all reviewed NAD by ED Provider (CT cont- along the liver. Stat surgery consultation is recommended. Trace perihepatic ascites. Coronary
artery calcifications. Additional findings: vascular calcifications. DJD. Colonic diverticulosis. Probable left renal cystic foci. )
*Pulse Oximetry
Patient hypoxic: no
*EKG
Interpreted by ED Provider?: NA
Rate: EKG- N/A
*Chlorine Plant Operator Interpretation
Rate: normal
Heart Rate: 84
Rhythm: sinus
*Critical Care Note
Total Time (30-74mins, 75-104mins- exclusive of procedures): Not Applicable
ED Attending Note
-
Portions of this chart may have been created with voice recognition software.� Occasional wrong word or��sound alike� substitutions may have occurred due to the inherent limitations of voice recognition software.
Discharge Plan
Departure
Patient Disposition: Admit
Date of Disposition: 01/15/24
Time of Disposition: 22:31
Admit to: Telemetry
Presentation/result/management discussed w/ accepting MD/DO: Hospitalist
Patient with high blood pressure during this ER visit?: Yes
Condition: Good
Covid-19: Not Applicable
Discharge Problem:
Acute perforated appendicitis
Prescriptions:
No Action
multivitamin Tablet
1 tab PO DAILY Qty: 0
cholecalciferol (vitamin D3) [Vitamin D3] 125 mcg (5,000 unit) Tablet
125 mcg PO DAILY
sildenafil 100 mg tablet
100 mg PO WEEKLY PRN (Reason: ED)
nitroglycerin 0.4 mg tablet, sublingual
0.4 mg sublingual [id number] PRN (Reason: chest pain)
Patient Comments:
07/12/2023: took a previous dose @ 1130
magnesium 250 mg Tablet
250 mg PO DAILY
metoprolol succinate 25 mg tablet extended release 24 hr
12.5 mg PO DAILY
clopidogrel 75 mg Tablet
75 mg PO DAILY Qty: 30 0RF
aspirin 81 MG tablet,chewable
81 mg PO DAILY Qty: 0 0RF
Referrals:
Sanju Montejo, DO [Family Provider] -
Interventions
Interventions:
*Risk Screen - Suicide Last Done: 01/15/24 19:21
*General Assessment Last Done: 01/15/24 20:13
*Neglect/Abuse Screening Last Done: 01/15/24 19:21
ED- Fall Risk Assessment Last Done: 01/15/24 20:34
*ED COVID-19 Vaccine History Last Done: 01/15/24 20:13
WF-Ekvqdg-Eahfkcufnn Assessment Last Done: 01/15/24 20:34
ED- Neurological Assessment Last Done: 01/15/24 20:34
ED-Skin Assessment Last Done: 01/15/24 20:34
Discharge Date and Time
Print Language: MAURITANIAN
[2024-01-15] MEDS: ZOFRAN 4 MG IV (20:22)
[2024-01-15] MEDS: NSS 1000 IV (20:22)
[2024-01-15] MEDS: TORADOL 30 MG IV (20:24)
--- NOTE | 2024-01-15 20:35 | EDRN ---
Pt with constant RLQ abdominal pain since 0 last night described as sharp in nature. Pt with nausea and vomiting, unable to keep anything down. Pt took tramadol for pain but says it came back up. Fever at home. Chills. Pt denies cp, sob,
cough, urinary symptoms, weakness, dizziness, diarrhea, constipation.
[2024-01-15 20:36] LABS: % Basophils 0.2 % (0-2); % Immature Granulocytes 0.4 % (0-0.5); % Lymphocytes 5.8 % (20.5-51.1); % Neutrophils 86.6 % (42.2-75.2); Absolute Immature Granulocytes 0.1 10^3/uL (0-0.05); Absolute Lymphocytes 0.7 10^3/uL (1.2-3.4); Absolute Monocytes 0.9 10^3/uL (0.1-0.6); Absolute Neutrophils 10.6 10^3/uL (1.4-6.5); Hematocrit 44.8 % (39.0-52.0); Hemoglobin 16.1 g/dL (13.0-18.0); Mean Corp Hgb Conc. 35.9 g/dL (33.0-37.0); Mean Corpuscular Hgb 31.1 pg (27.0-31.0); Mean Corpuscular Volume 86.7 fL (80.0-94.0); Mean Platelet Volume 9.4 fL (7.4-10.4); Nucleated Red Blood Cells % 0 % (-); Platelet Count 288 10^3/uL (130-400); Red Blood Cell Count 5.17 10^6/uL (4.70-6.10); Red Cell Dist. Width 12.3 % (11.5-14.5); White Blood Cell Count 12.2 10^3/uL (4.8-10.8)
[2024-01-15 20:50] LABS: ALT (SGPT) 37 U/L (0-50); AST (SGOT) 38 U/L (17-59); Albumin 4.9 g/dl (3.5-5.0); Alkaline Phosphatase 48 U/L (38-126); Blood Urea Nitrogen 20 mg/dl (9-20); Calcium 9.8 mg/dl (8.4-10.2); Carbon Dioxide 25 mmol/L (22-30); Chloride 92 mmol/L (98-107); Estimated Creatinine Clearance 72 ml/min; Glucose 157 mg/dl (70-99); Lipase 38 U/L (23-300); Sodium 132 mmol/L (135-145); Total Bilirubin 1.1 mg/dl (0.2-1.3); Total Protein 7.5 g/dl (6.3-8.2); eGFR > 60.00
[2024-01-15 21:00] VITALS: BP 154/94
[2024-01-15 22:32] VITALS: BP 110/85
[2024-01-15] MEDS: DILAUDID 1 MG IV (22:33)
[2024-01-15] MEDS: ZOSYN 50 IV (22:37)
[2024-01-15 23:00] VITALS: BP 126/84
--- NOTE | 2024-01-15 23:26 | HPS.HSE ---
Family Physician
-
Family Physician: Sanju Montejo
Chief Complaint
-
Abd pain
History of Present Illness
Patient is a 58y M with PMH significant for ASCVD who presents to ED complaining of abdominal pain. Patient states that his pain started yesterday around noon and has gradually increased since that time. Pain was initially diffusely across the
abdomen and then gradually localized to the RLQ. Patient states that he had nausea and had emesis with any attempts to eat, drink, take PO medications, etc. His pain worsened throughout the night and he was unable to sleep at all due to his level
of discomfort. Today with ongoing symptoms, patient presented to the ED for further evaluation.
Medical History
Past Medical History
Past Medical History: Reports Other
Additional Past Medical History:
ASCVD
DDD
Past Surgical History: Reports Other
Additional Past Surgical History:
PTCA with Stent to Distal LAD (07/13/23)
T&A
L4-5 Microdiscectomy
Ventral / Incisional Hernia Repair
CABG x 3 (2021)
Vasectomy
Social History
Tobacco: Non-smoker
Alcohol: Occasional (Rarely)
Family History
Family History: Other (Father: CAD)
Allergies / Home Medications
Allergies reflects when Allergies were last updated in [facility].
Home Medications with original date entered in [facility]
Allergy/Medication List:
Allergies
Allergy/AdvReac Type Severity Reaction Status Date / Time
codeine Allergy Unknown Verified 01/15/24 19:24
dog dander Allergy Swelling Verified 01/15/24 19:24
morphine Allergy headache Verified 01/15/24 19:24
ragweed pollen Allergy Runny nose Verified 01/15/24 19:24
Home Medications
multivitamin 1 tab PO DAILY Supplement ##0 05/03/21
cholecalciferol (vitamin D3) 125 mcg (5,000 unit) tablet (Vitamin D3) 125 mcg PO DAILY Supplement 01/25/23
magnesium 250 mg tablet 250 mg PO DAILY Electrolyte Repletion 07/12/23
metoprolol succinate 25 mg tablet,extended release 24 hr 12.5 mg PO DAILY Blood Pressure 07/12/23
nitroglycerin 0.4 mg sublingual tablet 0.4 mg sublingual [id number] PRN chest pain 07/12/23
sildenafil 100 mg tablet 100 mg PO WEEKLY PRN ED 07/12/23
aspirin 81 mg chewable tablet 81 mg PO DAILY Blood Clot Prevention/Tx #0 tabs 07/14/23
clopidogrel 75 mg tablet 75 mg PO DAILY #30 tabs 07/14/23
Review of Systems
-
History Source: Patient
A 12 point ROS was completed and negative except as noted: Yes
Constitutional: Reports Fatigue; Denies Fever or Chills
EENT: Denies Sore Throat
Respiratory: Denies Cough or Trouble Breathing
Cardiac: Denies Chest Pain or Palpitations
Abdomen/GI: Reports Abdominal Pain, Nausea, Vomiting and Anorexia; Denies Diarrhea, Constipated, Bloody Stools or Black Stools
: Denies Dysuria, Frequency or Flank Pain
Musculoskeletal: Denies Joint Pain or Edema
Neurological: Denies Dizzy or Headache
Psych: Denies Depression or Anxiety
Physical Exam
Vital Signs
Vital Signs
Temp Pulse Resp BP Pulse Ox
100.7 F H 103 13 110/85 99
01/15/24 22:40 01/15/24 22:32 01/15/24 22:32 01/15/24 22:32 01/15/24 20:00
Physical Exam
General: Other (58y M in mild distress due to pain.)
HEENT: Moist mucous membranes and PERRLA
Respiratory: Clear; No Wheezes, Rales or Rhonchi
Cardiac: S1/S2 and Regular Rhythm; No Murmur
GI: Soft, Non Distended and Other (Bowel sounds are diminished. Mild tenderness throughout - most severe at RLQ with pos guarding in this area.)
Musculoskeletal: No Clubbing, No Cyanosis and No Edema
Neuro: AO x 3
Laboratory Results
-
01/15/24 20:20
01/15/24 20:20
Laboratory Results
Total Bilirubin 1.1 mg/dl (0.2-1.3) 01/15/24 20:20
AST 38 U/L (17-59) 01/15/24 20:20
ALT 37 U/L (0-50) 01/15/24 20:20
Alkaline Phosphatase 48 U/L (38-126) 01/15/24 20:20
Lipase 38 U/L (23-300) 01/15/24 20:20
Impression/Plan
-
A/P: Patient is a 58y M with PMH significant for ASCVD who presents to ED complaining of abdominal pain x 24 hours.
Acute Perforated Appendicitis
Sepsis secondary to the above
- Admit for further evaluation and treatment.
- Patient presents with fever, tachycardia and leukocytosis and CT scan showing evidence of acute perforated appendicitis.
- IV abx with Zosyn.
- NPO, IVFs, pain control and antiemetics.
- CT with evidence of perforated appendicitis including free air and edema tracking along the R paracolic gutter.
- Surgery consulted and will evaluate patient in the AM.
- Follow for response to medical management.
- Hold Plavix pending surgical plan.
ASCVD
- Stable. No complaints of chest pain, dyspnea, etc.
- CABG in 2021 and PTCA with Stent 07/13/23.
- Currently on DAPT and will hold Plavix for now as noted above.
- Continue ASA uninterrupted.
- Continue beta-efrem with holding parameters.
- Follow for any new / worsening symptoms.
DVT Prophylaxis: SCDs
Code Status: Full
[2024-01-16] VITALS (18 sets, daily range): BP systolic 101–136; BP diastolic 73–93
--- NOTE | 2024-01-16 01:39 | EDRN ---
Called pharmacy to verify pain medicine and IVF
[2024-01-16] MEDS: LR 1000 IV ×3 (01:47→19:10)
[2024-01-16] MEDS: DILAUDID 0.5 MG IV ×4 (01:48→20:43)
[2024-01-16] MEDS: ZOSYN 50 IV (04:09)
[2024-01-16] MEDS: TORADOL 15 MG IV (04:13)
[2024-01-16 06:19] LABS: Hematocrit 40.5 % (39.0-52.0); Hemoglobin 14.3 g/dL (13.0-18.0); Mean Corp Hgb Conc. 35.3 g/dL (33.0-37.0); Mean Corpuscular Hgb 31.9 pg (27.0-31.0); Mean Corpuscular Volume 90.4 fL (80.0-94.0); Mean Platelet Volume 9.6 fL (7.4-10.4); Platelet Count 240 10^3/uL (130-400); Red Blood Cell Count 4.48 10^6/uL (4.70-6.10); Red Cell Dist. Width 12.7 % (11.5-14.5); White Blood Cell Count 14.8 10^3/uL (4.8-10.8)
[2024-01-16 06:58] LABS: Blood Urea Nitrogen 23 mg/dl (9-20); Calcium 9.3 mg/dl (8.4-10.2); Carbon Dioxide 22 mmol/L (22-30); Chloride 97 mmol/L (98-107); Estimated Creatinine Clearance 61 ml/min; Glucose 128 mg/dl (70-99); Potassium 4.5 mmol/L (3.5-5.1); Sodium 134 mmol/L (135-145); eGFR > 60.00
[2024-01-16] MEDS: PROTONIX IV 40 MG IV (08:13)
--- NOTE | 2024-01-16 08:15 | W.PN.HOSP.TC ---
Addendum entered and electronically signed by Dominog Delcid MD 01/16/24 08:33:
Discussed with GS
Ordered urgent [facility] as requested
Original Note:
Today's Communication/Plan
-
see note
Assessment / Plan
Assessment / Plan
Acute Perforated Appendicitis
Sepsis secondary to the above
- Patient presents with fever, tachycardia and leukocytosis
- CT a/p showing Perforated acute appendicitis with acute appendicitis with fluid filled nondilated before dilated appendix measuring up to 18 mm with extensive edema and inflammatory stranding tracking along the right paracolic gutter and
perinephric fascia. Intraperitoneal free air seen along perforated appendix and liver
- Increase zosyn dose to 4.5gm q6h for now
- Check blood cx x2 sets
- NPO, IVFs, pain control and antiemetics
- Patient in sev pain, adjusting pain medication regimen to dialudid 0.5/1mg q3h for mod/sev pain
- Hold Plavix pending surgical plan.
- GS notified about the patient condition.
ASCVD
- Stable. No complaints of chest pain, dyspnea, etc.
- CABG in 2021 and PTCA with Stent 07/13/23.
- Currently on DAPT and will hold Plavix for now as noted above.
- Continue ASA uninterrupted.
- Continue beta-efrem with holding parameters.
- Follow for any new / worsening symptoms.
DVT Prophylaxis: SCDs
Code Status: Full
Total time spent : 52 mins
Anticipated Discharge: > 48 hours
Subjective/Interval History
-
Date of Service: January 16, 2024
patient in distress due to significant right sided flank pain
having nausea, no vomiting
continues to spike fever
Objective Data
-
Labs:
Laboratory Results
01/15/24 01/16/24
20:20 05:58
WBC 12.2 H 14.8 H
Hgb 16.1 14.3
Hct 44.8 40.5
Plt Count 288 240
Sodium 132 L 134 L
Potassium 4.0 4.5
Chloride 92 L 97 L
Carbon Dioxide 25 22
BUN 20 23 H
Creatinine 1.1 1.3
Glucose 157 H 128 H
Calcium 9.8 9.3
Total Bilirubin 1.1
AST 38
ALT 37
Alkaline Phosphatase 48
Vital Signs:
Vital Signs
Temp Pulse Resp BP Pulse Ox
100.9 F H 91 11 101/73 99
01/16/24 01:44 01/16/24 06:00 01/16/24 06:00 01/16/24 06:00 01/15/24 20:00
Review of Systems
-
Respiratory: Reports No Symptoms
Cardiac: Reports No Symptoms
Abdomen/GI: Reports Abdominal Pain (sev - right side) and Nausea; Denies Vomiting
Physical Exam
-
General: Comfortable, Appears in Distress and Pain
HEENT: Negative Oxygen
Respiratory: Clear to Auscultation
Cardiac: Regular Rhythm and S1/S2; Negative Murmur or Rub
GI: Tender (Right flank) and Distended; Negative Normal Bowel Sounds
Musculoskeletal: No Edema
Neuro: Awake, Alert, Oriented, No Motor Deficits and Nonfocal/Grossly Intact
Psych: Agitated
[2024-01-16 09:26] LABS: Urine Albumin Trace (Neg - Trace); Urine Bilirubin Negative (Negative); Urine Character Slightly Cloudy (Clear); Urine Color Yellow; Urine Glucose Negative (Negative); Urine Ketone Negative (Negative); Urine Leukocyte Negative (Negative); Urine Nitrite Negative (Negative); Urine Occult Blood Trace (Negative); Urine Urobilinogen Negative (Neg - 1+)
[2024-01-16] MEDS: TOPROL XL PO (09:57)
[2024-01-16] MEDS: LOW STRENGTH ASPIRIN PO (09:57)
[2024-01-16 10:12] LABS: Urine Bacteria Few (Negative); Urine Red Blood Cell 0-2 /HPF (0-2)
[2024-01-16] MEDS: ZOSYN 100 IV (10:19)
[2024-01-16] MEDS: DILAUDID 1 MG IV ×3 (10:58→23:44)
--- NOTE | 2024-01-16 12:29 | CON.GS ---
Addendum entered and electronically signed by Anthony Elena MD 01/16/24 12:53:
I saw and examined the patient.
The Green Marketer's note was reviewed and I agree with the note.
Comment: Several days of progressive abd pain a/w n/v. Abd exam with ttp and voluntary guarding to RLQ. 100.9F Tmax. WBC 14K. CT with retrocecal appendix with fecalith and contained perforation. No drainable abscess. DAPT on board. Plan for medical
mgmt with IV abx. May require rpt imaging, may develop abscess. Hold ASA/plavix pending response to medical mgmt. If he responds well would defer surgery to interval elective case after minimum 6 weeks cool-down.
Original Note:
Medical History
-
Chief Complaint: abdominal pain
History of Present Illness:
Mr. Garza 58 yo male with a h/o CAD and CABG with SIERRA to LAD in June on DAPT presenting with abdominal pain which began >48 hours ago. Initially the pain was diffuse but localized quickly to the right lower abdomen. He denies fevers or chills
at home but has been febrile since arrival with tmax of 100.9. He notes nausea and vomiting since onset of pain with any PO intake. On exam, he is tender throughout to light palpation with severe tenderness to the RLQ with guarding. He denies
active nausea.
Past Medical History
Past Medical History: CAD and Other (DDD)
Past Surgical History: Cardiac (CABG x3 2021, PTCA with LAD SIERRA June 2023), Orthopedic (L4-5 Microdiscectomy), Tonsilectomy and Urological (vasectomy)
Social History
Tobacco: Non-Smoker
Alcohol: Occasional
Family History
Family History: CAD (Father)
Allergies / Home Medications
Allergy/AdvReac Type Severity Reaction Status Date / Time
codeine Allergy Unknown Verified 01/15/24 19:24
dog dander Allergy Swelling Verified 01/15/24 19:24
morphine Allergy headache Verified 01/15/24 19:24
ragweed pollen Allergy Runny nose Verified 01/15/24 19:24
�Medication �Instructions �Recorded �Confirmed �Type
multivitamin 1 tab PO DAILY Supplement ##0 05/03/21 01/16/24 History
cholecalciferol (vitamin D3) 125 125 mcg PO DAILY Supplement 01/25/23 01/16/24 History
mcg (5,000 unit) tablet (Vitamin
D3)
magnesium 250 mg tablet 250 mg PO DAILY Electrolyte 07/12/23 01/16/24 History
Repletion
metoprolol succinate 25 mg 12.5 mg PO DAILY Blood Pressure 07/12/23 01/16/24 History
tablet,extended release 24 hr
nitroglycerin 0.4 mg sublingual 0.4 mg sublingual [id number] PRN 07/12/23 01/16/24 History
tablet chest pain
sildenafil 100 mg tablet 100 mg PO WEEKLY PRN ED 07/12/23 01/16/24 History
aspirin 81 mg chewable tablet 81 mg PO DAILY Blood Clot 07/14/23 01/16/24 Rx
Prevention/Tx #0 tabs
clopidogrel 75 mg tablet 75 mg PO DAILY #30 tabs 07/14/23 01/16/24 Rx
Review of Systems
-
History Source: Patient
All other systems: Negative unless noted
A 10 point review of systems was completed, and was negative except as per HPI.
Physical Exam
Vital Signs
Temp Pulse Resp BP Pulse Ox
100.9 F H 92 14 117/83 99
01/16/24 01:44 01/16/24 12:00 01/16/24 12:00 01/16/24 12:00 01/15/24 20:00
01/15/24 01/16/24 01/17/24
06:59 06:59 06:59
Actual Weight 81.8 kg
Body Mass Index (BMI) 30.0
Lab Results
01/16/24 05:58
01/16/24 05:58
WBC 14.8 10^3/uL (4.8-10.8) H 01/16/24 05:58
Hgb 14.3 g/dL (13.0-18.0) 01/16/24 05:58
Hct 40.5 % (39.0-52.0) 01/16/24 05:58
Plt Count 240 10^3/uL (130-400) 01/16/24 05:58
Abs Immat Gran (auto) 0.1 10^3/uL (0-0.05) H 01/15/24 20:20
Neutrophils % 86.6 % (42.2-75.2) H 01/15/24 20:20
Physical Exam
General: Well Developed
HEENT: Moist Mucous Membranes
Respiratory: Non Labored Respirations
GI: Soft, Tender (RLQ severe, generalized tenderness throughout) and Distended
Skin: Warm and Dry
Neuro: Awake, Alert and AO x 3
Psych: Calm
Data Reviewed
-
CT Scan: Image Personally Visualized and interpreted, Report Reviewed by me, Discussed with Physician, Discussed with Nurse and Discussed with Patient
Labs: Labs Reviewed by me, Discussed with Physician, Discussed with Nurse and Discussed with Patient
Old Records: Reviewed
Assessment / Plan
-
58 yo male with h/o CAD with CABG and recent stent in June of this year on DAPT who presents with acute RLQ pain and associated n/v. CT imaging reviewed with findings of acute appendicitis with perforation and surrounding edema and inflammatory
changes, no abscess formation. Leukocytosis present with fever of 100.9. Cr mildly elevated. Significant pain present. If surgery where to be preformed, high risk for conversion to open procedure as well as high risk for complications including need
for removal of nearby bowel and bleeding (on DAPT). Reviewed risks with patient and recommendation to follow nonoperatively for improvement on antibiotics and bowel rest.
--Keep NPO
--Hold Plavix. Will consult cards to follow with us
--Will schedule IV analgesics over the next 24hours to optimize pain control. NSAID's on hold for now given Cr of 1.3. Continue Tyelnol and prn diluadid for breakthrough pain
--Continue IV Zosyn
--Will follow closely on abx for improvement.
--Medical management as per hospitalist team
--- NOTE | 2024-01-16 14:16 | CON.CAR ---
Consultation
Consultation Request
Date/Time Consultation Requested: 01/16/2024
Date/Time Consultation Performed: 01/16/2024
Reason for Consultation: Preop evaluation
Medical History
-
Chief Complaint: Abdominal pain
History of Present Illness:
Mr. Garza 58 yo male with a h/o CAD and CABG (CABG x3 2021) with SIERRA to LAD in June 2023 on DAPT presenting with abdominal pain which began >48 hours ago. Initially the pain was diffuse but localized quickly to the right lower abdomen. He
denies fevers or chills at home but has been febrile since arrival with tmax of 100.9. He notes nausea and vomiting since onset of pain with any PO intake. On exam, he is tender throughout to light palpation with severe tenderness to the RLQ with
guarding. He denies active nausea.
CT with retrocecal appendix with fecalith and contained perforation. No drainable abscess
Patient remained on aspirin and Plavix since June without any disruptions.
CARDIAC CATHETERIZATION REPORT
Date of Procedure: 07/13/2023
Referring: Narinder Madison MD
Indication: Recurrent nitrate responsive chest discomfort with prior CABG x 3 (05/06/2021)
HEMODYNAMIC DATA
AO: 118/72
LV: 118/11
LEFT VENTRICULOGRAPHY: Normal left ventricular wall motion with EF 65%
CORONARY ANGIOGRAPHY
Dominance: Right
Left Main: 30% distal stenosis
LAD: Diffuse moderate to severe proximal and mid LAD disease. The distal LAD fills antegrade and via a widely patent CARRIE graft. The CARRIE graft touches down into the distal LAD with good runoff through a 70% stenosis approximately 20 mm distal to
the touchdown site. There is a 70% apical LAD stenosis at the bifurcation of the whale's tail branches. There is retrograde flow in the LAD from the CARRIE graft to supply multiple septal perforators and two medium size diagonal branches.
Circumflex: The circumflex gives rise to a small OM1 and a large OM 2 before continuing on in the AV groove to supply two medium sized left posterolateral branches. There is 50% stenosis in the midportion of OM 2-the distal vessel fills antegrade
and via a widely patent vein graft
RCA: The RCA is occluded in the midportion. A patent free GARO graft supplies the relatively small RPDA
Bypass grafts:
1. The left internal mammary graft to the LAD is widely patent
2. The saphenous vein graft to the large OM 2 is widely patent with excellent runoff
3. The free radial graft to the distal RCA is patent with runoff into a medium sized RPDA. The RPL branch appears diffusely diseased and significantly smaller than its appearance on the preop study from 2021
Angioplasty: At the conclusion of the diagnostic study we proceeded with stenting of the distal LAD lesion approximately 20 mm distal to the CARRIE graft touchdown site. Heparin was used for anticoagulation. Plavix 600 mg was administered the
procedure conclusion. A 6 Swiss 90 cm CARRIE guide was advanced to the CARRIE origin. A BMW wire was passed into the apical LAD. The stent was advanced to the lesion site and completely obstructed flow distal to the stent site consistent with a
significantly high-grade lesion. Direct stenting with a 3.0 x 12 Xience SIERRA was accomplished at 14 [place] and the stent was postdilated with a 3.0 NC trek to 16 [place]. The final angiographic result was outstanding. There were no procedural
complications.
Closure Device: 6 Swiss Angio-Seal RFA
CONCLUSIONS
1: Normal left ventricular function with EF 65%
2: Severe [place] multivessel CAD as described with patent SAMSON-LAD, free radial-distal RCA, and SVG-OM2 bypass grafts
3. Successful stenting of 70% distal LAD lesion using 3.0 x 12 Xience SIERRA with outstanding final result
4. Recommend dual antiplatelet therapy for 6-12 months and lifelong aspirin therapy
Past Medical History
Past Surgical History: Cardiac (Coronary to bypass graft x 3 in 2021; PCI to LAD on 07/13/2023) and Other ( T&A L4-5 Microdiscectomy; Ventral / Incisional Hernia Repair; Vasectomy)
Social History
Tobacco: Non-Smoker
Alcohol: Occasional
Family History
Family History: Reviewed & Not Pertinent
Allergies / Home Medications
Allergy/AdvReac Type Severity Reaction Status Date / Time
codeine Allergy Unknown Verified 01/15/24 19:24
dog dander Allergy Swelling Verified 01/15/24 19:24
morphine Allergy headache Verified 01/15/24 19:24
ragweed pollen Allergy Runny nose Verified 01/15/24 19:24
�Medication �Instructions �Recorded �Confirmed �Type
multivitamin 1 tab PO DAILY Supplement ##0 05/03/21 01/16/24 History
cholecalciferol (vitamin D3) 125 125 mcg PO DAILY Supplement 01/25/23 01/16/24 History
mcg (5,000 unit) tablet (Vitamin
D3)
magnesium 250 mg tablet 250 mg PO DAILY Electrolyte 07/12/23 01/16/24 History
Repletion
metoprolol succinate 25 mg 12.5 mg PO DAILY Blood Pressure 07/12/23 01/16/24 History
tablet,extended release 24 hr
nitroglycerin 0.4 mg sublingual 0.4 mg sublingual [id number] PRN 07/12/23 01/16/24 History
tablet chest pain
sildenafil 100 mg tablet 100 mg PO WEEKLY PRN ED 07/12/23 01/16/24 History
aspirin 81 mg chewable tablet 81 mg PO DAILY Blood Clot 07/14/23 01/16/24 Rx
Prevention/Tx #0 tabs
clopidogrel 75 mg tablet 75 mg PO DAILY #30 tabs 07/14/23 01/16/24 Rx
Review of Systems
-
All other systems: Negative unless noted
Physical Exam
Vital Signs
Temp Pulse Resp BP Pulse Ox
100.9 F H 92 14 117/83 99
01/16/24 01:44 01/16/24 12:00 01/16/24 12:00 01/16/24 12:00 01/15/24 20:00
Lab Results
01/16/24 05:58
01/16/24 05:58
Physical Exam
General: Well Developed, Well Nourished and No Apparent Distress
HEENT: Normocephalic and Anicteric
Respiratory: Clear and Non Labored Respirations
Cardiac: S1/S2 and Regular Rhythm; Negative Murmur or Peripheral Edema
GI: Non Distended and Tender
Musculoskeletal: No Clubbing, No Cyanosis and No Edema
Skin: Warm and Dry
Neuro: Awake, Alert, Oriented and No Motor Deficits
Impression / Plan
-
58-year-old gentleman with history of multivessel coronary artery disease status post CABG 2021 and PCI to LAD with SIERRA on 07/13/2023 presented with perforation of the appendix and contained perforation.
Preop evaluation
-Patient is intermediate risk and may need moderate to high risk procedure for laparotomy if needed.
-With already perforation, and dual anti-platelet therapy on board, surgery may want to wait 4 to 5 days before going for laparotomy unless needed urgently.
-Patient's coronary disease is well controlled. Patient's stent was 6 months ago and at this time we can safely hold Plavix and continue aspirin.
-Continue statins.
CAD
-On ASA & beta efrem
-reports low bp at home if still elevated on follow up will add arb
-Some nonadherence with statin therapy
-CABG x 3 (SAMSON-LAD, SVG-GARO-OM, AO-SVG-PDA) 05/06/[address] Escalera
-07/13/23 Successful stenting of 70% distal LAD lesion using 3.0 x 12 Xience SIERRA with outstanding final result
HLD,
-on statin, LDL 55, continue atorvastatin 40 mg
Pre-diabetes, Hgba1c 5.9%
Former smoker, continued cessation recommended
Data Reviewed
-
EKG: Tracing Personally Visualized and interpreted
Radiology: Report Reviewed by me
Medical Tests (Nuc Med, Echo etc): Image Personally Visualized and interpreted
Labs: Labs Reviewed by me
Old Records: Reviewed
[2024-01-16] MEDS: DILAUDID IV (15:49)
[2024-01-16] MEDS: UNASYN IV ×2 (16:23→23:56)
[2024-01-16] MEDS: VANCOCIN 540 MG IV (17:20)
--- NOTE | 2024-01-16 20:43 | PHA.VAN.IN ---
Assessment
- Assessment
Renal Function: Appears similar to baseline
Maximum Temperature: 100.9
Minimum Temperature: 98.9
Concomitant Antimicrobials: Ampicillin/tazobactam
AUC Dosing Plan
- Dosing Variables
Dosing Weight (kg): 81.8
Dosing CrCl (ml/min): 61
Vd coefficient (L/kg): 0.6
- Empiric Dosing
Initial / Loading Dose: 2000MG
Maintenance Regimen: 1250MG q24h
Estimated AUC (mcg*h/mL): 482
Estimated Peak (mcg*h/mL): 34.7
Estimated Trough (mcg/ml): 10.1
Estimated Half Life (H): 12.6
- Monitoring
No levels ordered at this time: consider levels in next few days
Pharmacokinetics Vancomycin I
- -
Patient Age: 58
Patient Sex: Male
Vancomycin Day #: 1
Indication: GI
Requesting Provider: Audrey Delcid
Pertinent Antimicrobial Allergies:
none
Height / Weight:
Height 5 ft 5 in
Actual Weight 81.8 kg
- Vital Signs / Lab Results
Temp Pulse Resp BP Pulse Ox
100.9 F H 95 16 122/84 97
01/16/24 01:44 01/16/24 16:56 01/16/24 16:56 01/16/24 16:56 01/16/24 16:56
Lab Results - Hematology
01/15/24 01/16/24
20:20 05:58
WBC 12.2 H 14.8 H
Lab Results - Chemistry
01/15/24 01/16/24
20:20 05:58
BUN 20 23 H
Creatinine 1.1 1.3
Estimated Creat Clear 72 61
Albumin 4.9
01/16/24 01/16/24
08:45 14:45
Lactic Acid Cancelled Cancelled
Lab Results - Urine
01/16/24
08:23
Urine Nitrite (Reflex) Negative
Leukocyte Esterase Rfl Negative
Urine WBC (Reflex) 6-10
Ur Squamous Epith Cells 11-15
Urine Bacteria (Reflex) Few A
[2024-01-17] VITALS (32 sets, daily range): BP systolic 30–161; BP diastolic 74–103
[2024-01-17] MEDS: DILAUDID 0.5 MG IV ×2 (01:47→04:12)
[2024-01-17] MEDS: LR 1000 IV (03:47)
--- NOTE | 2024-01-17 04:30 | PTCARENOTE ---
This RN found this pt using his Albuterol inhaler,which is not ordered,pt stated he has been using it since his admission,he states it helps him breath better.Pts hr has gradually increased and sustained as ST,99 to 110,pulse ox 92%,pt is not
tachypneic but shallow and guarded with his resp.Pt stated that it is hard to take a deep,abd remains distended firm unchanged from 2300 assessment.Pt is taking scheduled Dilaudid 0.5mg iv along with Dilaudid 1 mg iv for breakthrough.Pain number is
always a 7-8,same area on abd.Swati ISSA notified,Obstruction series ordered.
--- NOTE | 2024-01-17 05:18 | W.PN.UPDATE ---
Update Note
Progress Note Update
Called to patient room due to nausea, abdominal pain and SOB. He apparently has been using his albuterol inhaler frequently since admission for 'allergies'. Was not noted on his medication list. Abdomen is round and distended. Unsure if nausea is
from dilaudid use but nursing notes it is pretty consistent post administration. CXR and abdominal xray to start. [place] nasal spray for nasal congestion.
[2024-01-17] MEDS: ZOFRAN 4 MG IV (05:19)
--- NOTE | 2024-01-17 05:30 | PTCARENOTE ---
Pt to Xray with this RN,pt tolerated procedure.
[2024-01-17 06:21] LABS: Hematocrit 37.4 % (39.0-52.0); Mean Corp Hgb Conc. 34.8 g/dL (33.0-37.0); Mean Corpuscular Hgb 32.5 pg (27.0-31.0); Mean Corpuscular Volume 93.5 fL (80.0-94.0); Mean Platelet Volume 9.5 fL (7.4-10.4); Platelet Count 198 10^3/uL (130-400); Red Cell Dist. Width 13.1 % (11.5-14.5); White Blood Cell Count 14.6 10^3/uL (4.8-10.8)
[2024-01-17] MEDS: DILAUDID IV ×3 (06:40→17:11)
[2024-01-17 06:41] LABS: ALT (SGPT) 29 U/L (0-50); AST (SGOT) 44 U/L (17-59); Albumin 3.5 g/dl (3.5-5.0); Alkaline Phosphatase 38 U/L (38-126); Blood Urea Nitrogen 26 mg/dl (9-20); Calcium 8.9 mg/dl (8.4-10.2); Carbon Dioxide 25 mmol/L (22-30); Chloride 100 mmol/L (98-107); Estimated Creatinine Clearance 72 ml/min; Glucose 123 mg/dl (70-99); Potassium 4.1 mmol/L (3.5-5.1); Sodium 137 mmol/L (135-145); Total Bilirubin 0.6 mg/dl (0.2-1.3); eGFR > 60.00
[2024-01-17] MEDS: UNASYN IV ×2 (06:48→10:29)
[2024-01-17] MEDS: VANCOCIN 275 MG IV (07:41)
[2024-01-17] MEDS: PROTONIX IV 40 MG IV (08:41)
[2024-01-17] MEDS: TOPROL XL PO (08:42)
--- NOTE | 2024-01-17 08:43 | W.PN.CD ---
Today's Communication / Plan
-
Hold Plavix, continue aspirin
Resume Plavix once postop or if conservative management
Continue beta-efrem perioperatively
Cardiology will sign off. Please call with further questions.
Impression / Plan
-
58-year-old gentleman with history of multivessel coronary artery disease status post CABG 2021 and PCI to LAD with SIERRA on 07/13/2023 presented with contained perforation of the appendix.
Preop evaluation
-Patient is intermediate risk and may need moderate to high risk procedure for laparotomy if needed.
-With already perforation, and dual anti-platelet therapy on board, surgery may want to wait 4 to 5 days before going for laparotomy unless needed urgently.
-Patient's coronary disease is well controlled. Patient's stent was 6 months ago and at this time we can safely hold Plavix and continue aspirin.
-Continue statins.
CAD
-On ASA & beta efrem
-reports low bp at home if still elevated on follow up will add arb
-Some nonadherence with statin therapy
-CABG x 3 (SAMSON-LAD, SVG-GARO-OM, AO-SVG-PDA) 05/06/[address] Escalera
-07/13/23 Successful stenting of 70% distal LAD lesion using 3.0 x 12 Xience SIERRA with outstanding final result
HLD,
-on statin, LDL 55, continue atorvastatin 40 mg
Pre-diabetes, Hgba1c 5.9%
Former smoker, continued cessation recommended
Subjective: Lots of abdominal pain this morning. No chest pain. Some shortness of breath secondary to the abdominal pain. No alarms on telemetry.
Physical Exam
Vital Signs/Labs
Vital Signs
Temp Pulse Resp BP Pulse Ox
99.1 F 103 18 123/84 93
01/17/24 03:00 01/17/24 01:00 01/17/24 01:00 01/17/24 01:00 01/17/24 02:08
01/16/24 01/17/24 01/18/24
06:59 06:59 06:59
Actual Weight 81.8 kg 81.8 kg
01/17/24 06:05
01/17/24 06:05
Physical Exam
Constitutional: No acute distress (Uncomfortable appearing, in pain)
Cardiovascular: Rhythm & rate is regular, Pedal edema is absent, JVD pressure is normal and Murmur/rub/gallop absent
Respiratory: Respiratory effort normal (Splinting secondary to abdominal pain, lungs clear to auscultation)
Data Reviewed
-
Date of Service: January 17, 2024
Medical Decision Making: Reviewed Test Results, Independent Historian Assessment, Test Interpretation and Review of Case with other Provider
EKG: Tracing Personally Visualized and interpreted
Echo: Report Reviewed by me
X-Ray/CT/US/MRI/NUC/PET: Report Reviewed by me
Labs: Labs Reviewed by me
Total Time Spent with Patient (in minutes): 35
--- NOTE | 2024-01-17 08:53 | W.PN.HOSP.TC ---
Today's Communication/Plan
-
IV AB
NPO
IVF
Pain control
ID eval
Assessment / Plan
Assessment / Plan
CVS: S1-S2 normal
Chest: CTA B/L
Abdomen: Slightly distended, tenderness right side with guarding
CT
1. ACUTE PERFORATED APPENDICITIS with an adjacent 2.6 cm extraluminal collection of periappendiceal air and a small amount of ascites in the right paracolic gutter.
2. Minimal right upper quadrant perihepatic ascites and pneumoperitoneum.
3. Mildly enlarged prostate gland.
4. Severe discogenic degenerative disease at L4/L5.
# Acute Perforated Appendicitis
Sepsis secondary to the above
Increase Zosyn dose to 4.5gm q6h for now
Check blood cx x2 sets
NPO, IVFs, pain control and antiemetics
Surgery is on hold as patient is on Plavix. Continue aspirin
General surgery following.
Infectious disease consultation requested
Patient was requesting nonnarcotic pain medicines
# ASCVD
No complaints of chest pain, dyspnea.
CABG in 2021 and PTCA with Stent 07/13/23.
Currently on DAPT and will hold Plavix for now as noted above.
Continue ASA uninterrupted.
Continue beta-efrem with holding parameters.
Cardiology evaluation noted
# Mild Hyponatremia- Resolved
# Hyperlipidemia- Continue statin
# Severe discogenic degenerative disease at L4/L5- H/O Microdiscectomy L4/L5 2011
# Obesity per BMI
# Mildly enlarged prostate gland- OP urology evaluation
# Ex Smoker
# DVT Prophylaxis: SCDs
# Code Status: Full
D/W RN
D/W Cardiology
Anticipated Discharge: > 48 hours
Subjective/Interval History
-
Date of Service: January 17, 2024
Objective Data
-
Labs:
Laboratory Results
01/17/24
06:05
WBC 14.6 H
Hgb 13.0
Hct 37.4 L
Plt Count 198
Sodium 137
Potassium 4.1
Chloride 100
Carbon Dioxide 25
BUN 26 H
Creatinine 1.1
Glucose 123 H
Calcium 8.9
Total Bilirubin 0.6
AST 44
ALT 29
Alkaline Phosphatase 38
Vital Signs:
Vital Signs
Temp Pulse Resp BP Pulse Ox
98.5 F 101 14 136/93 93
01/17/24 08:47 01/17/24 08:00 01/17/24 08:00 01/17/24 08:00 01/17/24 08:47
I&O
01/16/24 01/17/24 01/18/24
06:59 06:59 06:59
Intake Total 1120 / 1120
Output Total 400 / 400
Balance 720 / 720
[2024-01-17] MEDS: NSS 1000 IV ×2 (08:57→15:48)
--- NOTE | 2024-01-17 10:34 | CM ---
CM met with pt bedside
Pt resides alone in [place] with [address]
Notes independence with his ADLs- denies use of DMEs
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
Denies SNF hx but notes hx at [facility] and hx with VN/provider unknown
Denies financial insecurities
PCP- Sanju Montejo
Rx- Otilio [facility] [place]
Pt planned for OR likely today per pt for perf. appendicitis
His SO/Kami will stay with him post-dc to care for him
He notes she remains primary contact and decision maker
Notes his father/Justin is POA and resides out of state
Emotional support provided bedside as pt nervous about undergoing procedure
CM will continue to follow for dc planning
Discharge Disposition- anticipate home with SO, watch for post-op needs
--- NOTE | 2024-01-17 10:37 | CON.ID ---
Consultation
-
Date/Time Consultation Requested: January 17, 2024 0850
Date/Time Consultation Performed: January 17, 2024 1040
Requesting Provider: Dr. New De Dios
Performing Provider: Dr. Milvia Brown
Reason for Consultation: Appendicitis
Chief Complaint / Past History
Chief Complaint
Abdominal pain
History of Present Illness
58-year-old male with history of coronary disease status post CABG, status post stent on Plavix who presented to the ER on January 14 with 1 day history of worsening abdominal pain which localized over right lower quadrant. Positive nausea. In the
ER he was febrile 100.7, white count 12.2. CAT scan showed acute perforated appendicitis with 2.6 cm fluid collection. However due to patient being on Plavix, surgery on hold. He was on Zosyn then transition to vancomycin and Unasyn. Today
patient reports he continues to have severe right lower quadrant abdominal pain. Positive nausea. Has very poor p.o. intake. No diarrhea. Passed gas yesterday. He states per surgery, he will likely go to the OR today.
Past History
Additional Past Medical History:
CAD s/p CABG x 3, stent
BPH
Abd incisional hernia repair with mesh
L4-L5 microdiscectomy
Vasectomy
Allergy History:
codeine Allergy (Verified 01/15/24 19:24)
Unknown
dog dander Allergy (Verified 01/15/24 19:24)
Swelling
morphine Allergy (Verified 01/15/24 19:24)
headache
ragweed pollen Allergy (Verified 01/15/24 19:24)
Runny nose
Medications Reviewed: Yes
Current Antibiotics:
Vancomycin
Unasyn
Social History
Tobacco: Non-Smoker
Alcohol: Occasional
Drug: None
Personal:
Employment: Retired
Family History
Family History: Not Pertinent
Review of Systems
Review of Systems
General: Fever, Chills and Change in Appetite
HEENT: Negative Stiff Neck, Sinus Problems or Headache
Cardiovascular: Dyspnea; Negative Chest Pain
Respiratory: Negative Cough
Gasteroenterology: Nausea; Negative Vomiting or Diarrhea
Genital / Urological: Negative Dysuria or Flank Pain
Endocrine: Weakness
Neurological: Dizziness; Negative Headache
All systems: All other systems were reviewed and were negative
Vital Signs
Temp Pulse Resp BP Pulse Ox
98.5 F 101 14 136/93 93
01/17/24 08:47 01/17/24 08:00 01/17/24 08:00 01/17/24 08:00 01/17/24 09:08
Selected Entries
01/16/24
23:20
Temp 100.8 F H
Physical Exam
Physical Exam
Constitutional: Acutely Ill
Eyes: No Conjunctival Hemorrhage and Sclera Anicteric
Cardiovascular: Regular Rate and S1/S2
Pulmonary: Clear
Gastrointestinal: Other (Patient refuses for me to examine his abdomen due to pain.)
Extremities: Negative Edema
Neurological: AO x 3
Lab / Diagnostic Study Results
01/17/24 06:05
01/17/24 06:05
Abs Immat Gran (auto) 0.1 10^3/uL (0-0.05) H 01/15/24 20:20
Absolute Neuts (auto) 10.6 10^3/uL (1.4-6.5) H 01/15/24 20:20
Absolute Lymphs (auto) 0.7 10^3/uL (1.2-3.4) L 01/15/24 20:20
Absolute Monos (auto) 0.9 10^3/uL (0.1-0.6) H 01/15/24 20:20
Absolute Basos (auto) 0.0 10^3/uL (0-0.2) 01/15/24 20:20
Immature Gran % 0.4 % (0-0.5) 01/15/24 20:20
Neutrophils % 86.6 % (42.2-75.2) H 01/15/24 20:20
Lymphocytes % 5.8 % (20.5-51.1) L 01/15/24 20:20
Monocytes % 7.0 % (1.7-9.3) 01/15/24 20:20
Eosinophils % 0.0 % (0-6) 01/15/24 20:20
Basophils % 0.2 % (0-2) 01/15/24 20:20
Lactic Acid Cancelled 01/16/24 14:45
Ur Squamous Epith Cells 11-15 /LPF (Few) 01/16/24 08:23
Microbiology Results
Micro:
01/16/24 10:16 Blood Culture - Preliminary
Blood/Venous No Growth in 24 hours- Final report to follow
01/16/24 10:16 Blood Culture - Preliminary
Blood/Venous No Growth in 24 hours- Final report to follow
01/16/24 23:24 MRSA Screen - Pending
Nose
01/15/24 CT a/p: ACUTE PERFORATED APPENDICITIS with an adjacent 2.6 cm extraluminal collection of periappendiceal air and a small amount of ascites in the right paracolic gutter. Minimal right upper quadrant perihepatic ascites and pneumoperitoneum.
01/17/24 Chest/Abd XRAY: Findings consistent with ileus. No bowel obstruction. No overt pneumoperitoneum.
Assessment / Plan
# Acute perforated appendicitis with contained abscess.
# Sepsis with fever which persists, and leukocytosis which is worse
# CAD status post stent, surgery on hold during Plavix washout
-Blood cultures x 2 negative to date
-DC vancomycin and Unasyn
-Resume Zosyn
-At time of appendectomy,PLEASE obtain intraoperative cultures to help guide antibiotic therapy
-Trend white count and fever
-Follow clinically.
--- NOTE | 2024-01-17 11:05 | W.PN.GS2 ---
Today's Communication / Plan
-
OR today
N.p.o., IV fluids, IV antibiotics.
Type and cross, 2 units of platelets and 1 unit packed red blood cells ordered on-call to the OR.
Assessment / Plan
-
This is a 58-year-old male with significant cardiac history status post CABG, stents on DAPT who presents with likely perforated appendicitis, that has failed nonoperative management.
Will plan for laparoscopic appendectomy today.
Risks/Benefits/Alternatives, expected postoperative course and possible complications (bleeding, infection, injury to surrounding structures, acute/chronic pain) discussed at length. Patient wishes to proceed with surgery. All questions answered.
Consent obtained.
I spent 60 minutes in total for the care of this patient today including direct patient care and counseling, reviewing labs, imaging, coordination of care, as well as documentation.
Time Spent
Total Time Spent with Patient (in minutes): 30
Subjective Data
-
Date of Service: January 17, 2024
Interval Events:
Worsening pain, uncomfortable and now tachycardic.
Objective Data
-
Intake and Output
01/16/24 01/17/24 01/18/24
06:59 06:59 06:59
Intake Total 1120 / 1120
Output Total 400 / 400
Balance 720 / 720
Intake:
IV fluids (Total) 1000 / 1000
Lr 1,000 ml @ 125 mls/hr IV . 1000 / 1000
Q8H JUAN A Rx#:[id number]
IV piggybacks 120 / 120
Lr 1,000 ml @ 125 mls/hr IV . 120 / 120
Q8H JUAN A Rx#:[id number]
Output:
Urine, Voided 400 / 400
Vital Signs
Temp Pulse Resp BP Pulse Ox
98.5 F 105 22 134/90 93
01/17/24 08:47 01/17/24:00 01/17/24 10:00 01/17/24 10:00 01/17/24 09:08
Lab Results
01/17/24 06:05
01/17/24 06:05
Calcium 8.9 mg/dl (8.4-10.2) 01/17/24 06:05
Total Bilirubin 0.6 mg/dl (0.2-1.3) 01/17/24 06:05
AST 44 U/L (17-59) 01/17/24 06:05
ALT 29 U/L (0-50) 01/17/24 06:05
Alkaline Phosphatase 38 U/L (38-126) 01/17/24 06:05
Total Protein 6.0 g/dl (6.3-8.2) L 01/17/24 06:05
Albumin 3.5 g/dl (3.5-5.0) 01/17/24 06:05
Physical Exam
-
GENERAL/NEURO: Awake, Alert, no distress
CHEST: Unlabored breathing on RA
ABDOMEN: Soft, focal tenderness with rebound in the right lower quadrant.
--- NOTE | 2024-01-17 11:10 | W.SUR.PREOP ---
Addendum entered and electronically signed by Deng Umaña MD 01/17/24 12:00:
After thorough discussion with the patient, he stated he would like his partner of 5 years Kami to be his POA. This conversation was witnessed by our LOG ROLLER Sharon Chang.
Original Note:
Pre-Operative Surgical Note
-
I have examined this patient prior to the performance of the scheduled procedure.
The patient's condition is unchanged from the time of the current History and
Physical and the patient is able to undergo the scheduled procedure.
--- NOTE | 2024-01-17 11:14 | PTCARENOTE ---
Patient asking for non narcotic IV pain meds. RN reached out to hospitalist for orders. OR called for report. Sent blood work or type and screen. Patient does not want any pain meds at this time as he is about to receive sedation.
[2024-01-17] MEDS: ZOSYN IV (14:48)
[2024-01-17] MEDS: TORADOL 10 MG IV ×2 (14:58→21:25)
--- NOTE | 2024-01-17 15:25 | SUR.PHASEI ---
patient sleeps after toradol if not disturbed, then mumbles one word answers. Will not open eyes. asked the urinal be propped. dr long notified of BP - no treatment at this time
--- NOTE | 2024-01-17 16:11 | W.IMMPOSTOP ---
Surgical Immed Post Op Note
-
Primary Surgeon: Deng Umaña MD
Assisting Surgeon: Nicolas Serrano MD
Boarding Specialist: JAYLAN Singh
Pre-op Diagnosis: Acute perforated appendicitis
Post-op Diagnosis: Acute necrotic appendicitis, intra-abdominal abscess
Procedure Performed:
1. Laparoscopic appendectomy
2. Washout of intra-abdominal abscess.
Anesthesia Type: General
Specimen / Cultures:
1. Right lower quadrant fluid for Gram stain, culture aerobic and anaerobic.
2. Appendix
Estimated Blood Loss: 23 cc
Complications: None
Operative Findings: Gangrenous,, perforated, retrocecal appendix with a very large abscess cavity extending to above the liver. After mobilizing the terminal ileum we were able to get behind the appendix and right colon and mobilize it medially.
An additional 5 mm right upper quadrant port was placed and Dr. Serrano was called into assist as additional help was needed to retract his dilated bowel and help provide exposure to the retrocecal area. The appendix appeared to be essentially
filleted open from the mid body distally, once we were able to recognize this and dissect posterior to what was left of the appendix we were able to identify the correct plane and traced that proximally to the base of the appendix which appeared
dilated and inflamed but not gangrenous. There was an additional focal perforation near the base. The base otherwise appeared healthy and was taken with a 60 purple load. A 15 Ukrainian round Shilo drain was placed in through the left lower quadrant
port up the right colic gutter.
POST OP PLAN:
Imaging: None
Labs: Routine AM
Diet: Okay for sips of clears, expect postoperative ileus.
Analgesia: Tylenol 650mg q6 Javan, Whitney 5mg q6 PRN, Dilaudid 0.5mg q2h PRN
Neuro/vascular checks: q4h
AC/AP: Hold Therapeutic AC, Ok for DVT PPx
Activity: Ad Aida
Wound/Incisions/Drains: Routine, KIRSTY to bulb suction.
Abx: Will plan for a 14-day course of antibiotics
Dispo: RNF, with telemetry.
[2024-01-17] MEDS: ZOSYN 100 IV ×2 (17:03→23:09)
--- NOTE | 2024-01-17 17:12 | PTCARENOTE ---
Patient admitted from [facility] post laparoscopic appendectomy with a perforated appendix.The patient is drowsy but arousable.Vital signs are stable.Both laparoscopic sites are open to air without drainage.The patient is in his bed with the call ingram in
reach.His significant other is at the bedside.
[2024-01-18 03:44] VITALS: BP 130/92
[2024-01-18] MEDS: ULTRAM 50 MG PO ×3 (04:24→22:13)
[2024-01-18] MEDS: ANESTHETIC LOZENGE 1 LOZENGE PO (05:00)
[2024-01-18] MEDS: ZOSYN 100 IV ×4 (05:00→23:45)
[2024-01-18] MEDS: NSS 1000 IV (06:40)
[2024-01-18 08:00] VITALS: BP 151/93
[2024-01-18 08:34] LABS: Hematocrit 33.9 % (39.0-52.0); Hemoglobin 11.7 g/dL (13.0-18.0); Mean Corp Hgb Conc. 34.5 g/dL (33.0-37.0); Mean Corpuscular Hgb 32.4 pg (27.0-31.0); Mean Corpuscular Volume 93.9 fL (80.0-94.0); Platelet Count 198 10^3/uL (130-400); Red Blood Cell Count 3.61 10^6/uL (4.70-6.10); Red Cell Dist. Width 13.2 % (11.5-14.5); White Blood Cell Count 12.7 10^3/uL (4.8-10.8)
--- NOTE | 2024-01-18 08:39 | W.PN.GS2 ---
Today's Communication / Plan
-
Will keep n.p.o., IV fluids, IV antibiotics. Will plan for clear liquid diet for dinner.
Follow-up cultures
Expect ileus.
Up and out of bed, ambulate as much as possible today.
Possible DC home tomorrow, +/-, d1/7 of abx
Assessment / Plan
-
This is a 58-year-old male with significant cardiac history status post CABG, stents on DAPT who presents with likely perforated appendicitis, that failed initial nonoperative management, now POD #1 status post laparoscopic appendectomy. Doing
well, expected postoperative course.
Will keep n.p.o., IV fluids, IV antibiotics. Will plan for clear liquid diet for dinner.
Follow-up cultures
Expect ileus.
Up and out of bed, ambulate as much as possible today.
Possible DC home tomorrow, +/-, d1/7 of abx
Time Spent
Total Time Spent with Patient (in minutes): 20
Subjective Data
-
Date of Service: January 18, 2024
Interval Events:
No acute events overnight. Slept well. Pain Controlled. Denies Nausea/Vomiting, +bowel function.
Objective Data
-
Intake and Output
01/17/24 01/18/24 01/19/24
06:59 06:59 06:59
Intake Total 1120 / 1120 1520 / 1520
Output Total 400 / 400 1185 / 1185
Balance 720 / 720 335 / 335
Intake:
Oral fluids 920 / 920
IV fluids (Total) 1000 / 1000 200 / 200
Lr 1,000 ml @ 125 mls/hr IV . 1000 / 1000
Q8H JUAN A Rx#:[id number]
nss 200 / 200
IV piggybacks 120 / 120 400 / 400
Lr 1,000 ml @ 125 mls/hr IV . 120 / 120
Q8H JUAN A Rx#:[id number]
Output:
Drain Output (Total) 160 / 160
Left Lower Abdomen Adithya- 160 / 160
Kline
Urine, Gomes 150 / 150
Urine, Voided 400 / 400 875 / 875
Other:
Number of approximated LARGE 2
amounts of urine
Vital Signs
Temp Pulse Resp BP Pulse Ox
98.5 F 91 18 130/92 95
01/18/24 03:44 01/18/24 03:44 01/18/24 03:44 01/18/24 03:44 01/18/24 03:44
Lab Results
01/18/24 07:20
Calcium 8.9 mg/dl (8.4-10.2) 01/17/24 06:05
Total Bilirubin 0.6 mg/dl (0.2-1.3) 01/17/24 06:05
AST 44 U/L (17-59) 01/17/24 06:05
ALT 29 U/L (0-50) 01/17/24 06:05
Alkaline Phosphatase 38 U/L (38-126) 01/17/24 06:05
Total Protein 6.0 g/dl (6.3-8.2) L 01/17/24 06:05
Albumin 3.5 g/dl (3.5-5.0) 01/17/24 06:05
Physical Exam
-
GENERAL/NEURO: Awake, Alert, no distress
CHEST: Unlabored breathing on RA
ABDOMEN: Soft, appropriately tender, Distended, incisions clean dry and intact. KIRSTY with serosanguineous drainage.
[2024-01-18 08:48] LABS: ALT (SGPT) 29 U/L (0-50); AST (SGOT) 40 U/L (17-59); Albumin 3.1 g/dl (3.5-5.0); Alkaline Phosphatase 51 U/L (38-126); Blood Urea Nitrogen 27 mg/dl (9-20); Calcium 8.3 mg/dl (8.4-10.2); Carbon Dioxide 27 mmol/L (22-30); Chloride 100 mmol/L (98-107); Estimated Creatinine Clearance 66 ml/min; Glucose 127 mg/dl (70-99); Potassium 4.1 mmol/L (3.5-5.1); Sodium 137 mmol/L (135-145); Total Bilirubin 0.5 mg/dl (0.2-1.3); Total Protein 5.4 g/dl (6.3-8.2); eGFR > 60.00
[2024-01-18] MEDS: LOW STRENGTH ASPIRIN 81 MG PO (08:51)
[2024-01-18] MEDS: PROTONIX IV 40 MG IV (08:51)
[2024-01-18] MEDS: NSS (PRESERVATIVE FREE) 10 ML IV (08:51)
[2024-01-18] MEDS: TOPROL XL 12.5 MG PO (08:54)
--- NOTE | 2024-01-18 11:23 | W.PN.HOSP.TC ---
Today's Communication/Plan
-
Clear liquid diet to be started for dinner
Encourage ambulation which he is doing
Start Lovenox for DVT prophylaxis if okay with surgeon
Assessment / Plan
Assessment / Plan
CVS: S1-S2 normal
Chest: CTA B/L
Abdomen: Slightly distended, decreased valve sounds. Laparotomy wound stable. KIRSTY drain noted with blood tinged serosanguineous discharge
Denies any chest pain or shortness of breath.
CT
1. ACUTE PERFORATED APPENDICITIS with an adjacent 2.6 cm extraluminal collection of periappendiceal air and a small amount of ascites in the right paracolic gutter.
2. Minimal right upper quadrant perihepatic ascites and pneumoperitoneum.
3. Mildly enlarged prostate gland.
4. Severe discogenic degenerative disease at L4/L5.
# Acute Perforated Appendicitis
Sepsis secondary to the above
Status post laparoscopic appendectomy with washout of intra-abdominal abscess by Dr. Umaña 01/17/2024
Await postop valve recovery
Continue IV fluids
Leukocytosis better
Continue Zosyn
ID eval appreciated
# ASCVD
No complaints of chest pain, dyspnea.
CABG in 2021 and PTCA with Stent 07/13/23.
Currently on DAPT and will hold Plavix for now as noted above.
Continue ASA uninterrupted.
Continue beta-efrem with holding parameters.
Cardiology evaluation noted
# Mild Hyponatremia- Resolved
# Hyperlipidemia- Continue statin
# Severe discogenic degenerative disease at L4/L5- H/O Microdiscectomy L4/L5 2011
# Obesity per BMI
# Mildly enlarged prostate gland- OP urology evaluation
# Ex Smoker
# DVT Prophylaxis: SCDs
# Code Status: Full
D/W Surgeon
Anticipated Discharge: Within 24 hours
Subjective/Interval History
-
Date of Service: January 18, 2024
Objective Data
-
Labs:
Laboratory Results
01/18/24
07:20
WBC 12.7 H
Hgb 11.7 L
Hct 33.9 L
Plt Count 198
Sodium 137
Potassium 4.1
Chloride 100
Carbon Dioxide 27
BUN 27 H
Creatinine 1.2
Glucose 127 H
Calcium 8.3 L
Total Bilirubin 0.5
AST 40
ALT 29
Alkaline Phosphatase 51
Vital Signs:
Vital Signs
Temp Pulse Resp BP Pulse Ox
98.5 F 90 16 151/93 96
01/18/24 08:00 01/18/24 08:54 01/18/24 08:00 01/18/24 08:54 01/18/24 08:00
I&O
01/17/24 01/18/24 01/19/24
06:59 06:59 06:59
Intake Total 1120 / 1120 1520 / 1520
Output Total 400 / 400 1225 / 1225
Balance 720 / 720 295 / 295
--- NOTE | 2024-01-18 11:38 | CM ---
Met with patient at bedside.
Clear liquid diet, IV abx
Has LLQ drain
tentative d/c tomorrow per notes
PLAN: Home, no needs anticipated.
girlfriend to transport.
[2024-01-18 12:00] VITALS: BP 116/79
--- NOTE | 2024-01-18 13:23 | W.PN.ID1 ---
Date of Service
Date of Service: January 18, 2024
Today's Communication
Continue Zosyn.
Assessment / Plan
# Acute perforated appendicitis with intra-abd abscess.
# Fever resolving
# Leukocytosis trending down
- 01/17/24 s/p lap appy and washout
- OR cx GNR
-Blood cultures x 2 negative to date
-Continue Zosyn
-Trend white count and temps
#Additional Past Medical History:
CAD s/p CABG x 3, stent
BPH
Abd incisional hernia repair with mesh
L4-L5 microdiscectomy
Vasectomy
Chief Complaint
-: Fever, Leukocytosis and Other (Perforated appendicitis)
Subjective / Review of Systems
Feeling better after surgery.
Vital Signs / Physical Exam
Vital Signs
Vital Signs
Temp Pulse Resp BP Pulse Ox
98.3 F 86 18 116/79 95
01/18/24 12:00 01/18/24 12:00 01/18/24 12:00 01/18/24 12:00 01/18/24 12:00
Physical Exam
Constitutional: No Acute Distress
Gastrointestinal: Soft, Tender (mild rlq) and Decreased Bowel Sounds
Neurological: AO x 3
Objective Data
Lab Data
Lab Results
01/18/24 07:20
01/18/24 07:20
Estimated Creat Clear 66 ml/min 01/18/24 07:20
Lactic Acid Cancelled 01/16/24 14:45
Total Bilirubin 0.5 mg/dl (0.2-1.3) 01/18/24 07:20
AST 40 U/L (17-59) 01/18/24 07:20
ALT 29 U/L (0-50) 01/18/24 07:20
Alkaline Phosphatase 51 U/L (38-126) 01/18/24 07:20
Most recent labs reviewed.
Micro Results:
01/16/24 10:16 Blood Culture - Preliminary
Blood/Venous No Growth in 48 hours- Final report to follow
01/16/24 10:16 Blood Culture - Preliminary
Blood/Venous No Growth in 48 hours- Final report to follow
01/17/24 13:16 Anaerobic Culture - Preliminary
Abscess Culture pending. Anaerobic cultures are examined after 3
days incubation. Additional information to follow.
01/17/24 13:16 Wound Culture - Preliminary
Abscess Gram negative bacilli
Gram Stain - Preliminary
01/16/24 23:24 MRSA Screen - Final
Nose No Methicillin Resistant Staphylococcus aureus isolated.
01/15/24 CT a/p: ACUTE PERFORATED APPENDICITIS with an adjacent 2.6 cm extraluminal collection of periappendiceal air and a small amount of ascites in the right paracolic gutter. Minimal right upper quadrant perihepatic ascites and pneumoperitoneum.
01/17/24 Chest/Abd XRAY: Findings consistent with ileus. No bowel obstruction. No overt pneumoperitoneum.
[2024-01-18] MEDS: TORADOL 10 MG IV (15:17)
[2024-01-18 16:00] VITALS: BP 109/63
[2024-01-18] MEDS: LOVENOX 40 MG SC (17:02)
[2024-01-18 19:54] VITALS: BP 133/92
[2024-01-18 23:26] VITALS: BP 127/93
--- NOTE | 2024-01-19 02:33 | PTCARENOTE ---
2230- While assessing patient's IV, patient was noted to have zosyn still hanging, but not infusing. 1800 dose was missed, pharmacy made aware. Pt stable, assessment ongoing.
[2024-01-19 03:11] VITALS: BP 133/91
[2024-01-19] MEDS: ZOSYN 100 IV ×4 (05:01→23:01)
[2024-01-19] MEDS: ULTRAM 50 MG PO ×3 (07:18→22:40)
[2024-01-19] MEDS: PROTONIX IV 40 MG IV (07:20)
[2024-01-19] MEDS: TOPROL XL 12.5 MG PO (07:20)
[2024-01-19] MEDS: LOW STRENGTH ASPIRIN 81 MG PO (07:20)
[2024-01-19] MEDS: NSS (PRESERVATIVE FREE) 10 ML IV (07:20)
[2024-01-19 07:27] VITALS: BP 142/73
[2024-01-19 07:50] LABS: Hematocrit 32.4 % (39.0-52.0); Hemoglobin 11.1 g/dL (13.0-18.0); Mean Corp Hgb Conc. 34.3 g/dL (33.0-37.0); Mean Corpuscular Hgb 31.4 pg (27.0-31.0); Mean Corpuscular Volume 91.8 fL (80.0-94.0); Mean Platelet Volume 9.9 fL (7.4-10.4); Platelet Count 212 10^3/uL (130-400); Red Blood Cell Count 3.53 10^6/uL (4.70-6.10); Red Cell Dist. Width 13.5 % (11.5-14.5); White Blood Cell Count 10.7 10^3/uL (4.8-10.8)
[2024-01-19 08:07] LABS: ALT (SGPT) 31 U/L (0-50); AST (SGOT) 40 U/L (17-59); Albumin 2.9 g/dl (3.5-5.0); Alkaline Phosphatase 49 U/L (38-126); Blood Urea Nitrogen 28 mg/dl (9-20); Calcium 8.1 mg/dl (8.4-10.2); Carbon Dioxide 27 mmol/L (22-30); Chloride 100 mmol/L (98-107); Estimated Creatinine Clearance 72 ml/min; Glucose 89 mg/dl (70-99); HDL Cholesterol 19 mg/dl; Magnesium 2.2 mg/dl (1.6-2.3); Potassium 4.1 mmol/L (3.5-5.1); Sodium 137 mmol/L (135-145); Total Bilirubin 0.5 mg/dl (0.2-1.3); Total Cholesterol 158 mg/dl (50-199); Total Protein 5.2 g/dl (6.3-8.2); eGFR > 60.00
[2024-01-19 08:26] LABS: Triglyceride 410 mg/dl (10-149)
[2024-01-19 09:06] LABS: LDL Cholesterol, Direct < 30 mg/dl
--- NOTE | 2024-01-19 11:08 | W.PN.GS2 ---
Today's Communication / Plan
-
Adv diet
IV abx
Ambulate
DVT ppx
Assessment / Plan
-
This is a 58-year-old male with significant cardiac history status post CABG, stents on DAPT who presents with likely perforated appendicitis, that failed initial nonoperative management, now POD #2 status post laparoscopic appendectomy. Doing
well, expected postoperative course.Bowel function returning.
Adv to LRD
HLIV
Follow-up cultures
Up and out of bed, ambulate as much as possible today.
Subjective Data
-
Date of Service: January 19, 2024
AFVSS, OOBTC, ambulating, pain controlled, gena cld
Objective Data
-
Intake and Output
01/18/24 01/19/24 01/20/24
06:59 06:59 06:59
Intake Total 1520 / 1520 1590 / 1590
Output Total 1225 / 1225 200 / 200
Balance 295 / 295 1390 / 1390
Intake:
Oral fluids 920 / 920 240 / 240
IV fluids (Total) 200 / 200 850 / 850
nss 200 / 200
IV piggybacks 400 / 400 500 / 500
Output:
Drain Output (Total) 200 / 200 200 / 200
Left Lower Abdomen Adithya- 200 / 200 200 / 200
Kline
Urine, Gomes 150 / 150
Urine, Voided 875 / 875
Other:
Number of approximated LARGE 2 3
amounts of urine
Vital Signs
Temp Pulse Resp BP Pulse Ox
98.3 F 82 15 142/73 98
01/19/24 07:27 01/19/24 07:27 01/19/24 07:27 01/19/24 07:27 01/19/24 07:27
Lab Results
01/19/24 06:40
01/19/24 06:40
Calcium 8.1 mg/dl (8.4-10.2) L 01/19/24 06:40
Magnesium 2.2 mg/dl (1.6-2.3) 01/19/24 06:40
Total Bilirubin 0.5 mg/dl (0.2-1.3) 01/19/24 06:40
AST 40 U/L (17-59) 01/19/24 06:40
ALT 31 U/L (0-50) 01/19/24 06:40
Alkaline Phosphatase 49 U/L (38-126) 01/19/24 06:40
Total Protein 5.2 g/dl (6.3-8.2) L 01/19/24 06:40
Albumin 2.9 g/dl (3.5-5.0) L 01/19/24 06:40
Physical Exam
-
Gen: NAD
Abd: soft, approp ttp, incisions cdi, drain with sero-purulent fluid
[2024-01-19 11:16] VITALS: BP 143/99
[2024-01-19 11:28] LABS: Glycohemoglobin (HgbA1c) 5.9 % (4.0-5.6)
--- NOTE | 2024-01-19 11:35 | CM ---
Reviewed the chart notes. Patient's diet advanced to low residual. KIRSTY drain remains. CM continues to be available to patient/family and is monitoring medical plan for needs at discharge.
Plan: Discharge plans will depend on patient's progress. If KIRSTY drain remains at discharge VN might be appropriate.
--- NOTE | 2024-01-19 13:00 | W.PN.ID1 ---
Date of Service
Date of Service: January 19, 2024
Today's Communication
-Continue Zosyn
-Will transition to po abx when final cx available.
Assessment / Plan
# Acute perforated appendicitis with intra-abd abscess.
# Fever resolved
# Leukocytosis resolved
- 01/17/24 s/p lap appy and washout
- OR cx E. coli
-Blood cultures x 2 negative to date
-Continue Zosyn
-Will transition to po abx when final cx available.
#Additional Past Medical History:
CAD s/p CABG x 3, stent
BPH
Abd incisional hernia repair with mesh
L4-L5 microdiscectomy
Vasectomy
Chief Complaint
-: Fever, Leukocytosis and Other (Perforated appendicitis)
Subjective / Review of Systems
Feels much improved.
Vital Signs / Physical Exam
Vital Signs
Vital Signs
Temp Pulse Resp BP Pulse Ox
99.4 F 83 15 143/99 98
01/19/24 11:16 01/19/24 11:16 01/19/24 11:16 01/19/24 11:16 01/19/24 11:16
Physical Exam
Constitutional: No Acute Distress and Comfortable
Gastrointestinal: Soft, Non Tender and Normal Bowel Sounds
Neurological: AO x 3
Objective Data
Lab Data
Lab Results
01/19/24 06:40
01/19/24 06:40
Estimated Creat Clear 72 ml/min 01/19/24 06:40
Lactic Acid Cancelled 01/16/24 14:45
Total Bilirubin 0.5 mg/dl (0.2-1.3) 01/19/24 06:40
AST 40 U/L (17-59) 01/19/24 06:40
ALT 31 U/L (0-50) 01/19/24 06:40
Alkaline Phosphatase 49 U/L (38-126) 01/19/24 06:40
Most recent labs reviewed.
Micro Results:
01/16/24 10:16 Blood Culture - Preliminary
Blood/Venous No Growth in 72 hours- Final report to follow
01/16/24 10:16 Blood Culture - Preliminary
Blood/Venous No Growth in 72 hours- Final report to follow
01/17/24 13:16 Wound Culture - Preliminary
Abscess Escherichia coli
Gram Stain - Preliminary
01/17/24 13:16 Anaerobic Culture - Preliminary
Abscess Culture pending. Anaerobic cultures are examined after 3
days incubation. Additional information to follow.
01/16/24 23:24 MRSA Screen - Final
Nose No Methicillin Resistant Staphylococcus aureus isolated.
01/15/24 CT a/p: ACUTE PERFORATED APPENDICITIS with an adjacent 2.6 cm extraluminal collection of periappendiceal air and a small amount of ascites in the right paracolic gutter. Minimal right upper quadrant perihepatic ascites and pneumoperitoneum.
01/17/24 Chest/Abd XRAY: Findings consistent with ileus. No bowel obstruction. No overt pneumoperitoneum.
--- NOTE | 2024-01-19 14:45 | OR.RPT ---
Operative Report
Operative Report
Patient Name: Wan Garza
: 1965
Date of Operation: 01/17/2024
Preoperative Diagnosis: Acute perforated appendicitis
Postoperative Diagnosis: Acute necrotic appendicitis, intra-abdominal abscess
Procedure(s):
Laparoscopic Appendectomy
Washout of intra-abdominal abscess
Surgeon(s):
Dr. Umaña
[place] Tier(s):
Dr. Serrano
JAYLAN Singh
Anesthesia: General
Estimated Blood Loss: 23 cc
Urine Output: None
Drains/Lines/Implants: None
Specimens:
1. Appendix
HPI/Surgical Indications:
This is a 58 year old male who presented to our hospital with a 2-day history of right lower quadrant abdominal pain. CT imaging was concerning for perforated appendicitis. Given his antiplatelet use he was counseled on nonoperative management
however on clinical exam, he continued to worsen so after discussion of Risks/Benefits/Alternatives, the patient agreed to proceed with surgery.
Operative Findings: Gangrenous, perforated, retrocecal appendix with a very large abscess cavity extending to above the liver. After mobilizing the terminal ileum we were able to get behind the appendix and right colon and mobilize it medially. An
additional 5 mm right upper quadrant port was placed and Dr. Serrano was called into assist as additional help was needed to retract his dilated bowel and help provide exposure to the retrocecal area. The appendix appeared to be essentially
filleted open from the mid body distally, once we were able to recognize this and dissect posterior to what was left of the appendix we were able to identify the correct plane and traced that proximally to the base of the appendix which appeared
dilated and inflamed but not gangrenous. There was an additional focal perforation near the base. The base otherwise appeared healthy and was taken with a 60 purple load. A 15 Georgian round Shilo drain was placed in through the left lower quadrant
port up the right colic gutter.
Procedure Description:
The patient was placed in the supine position, with the left arm tucked, and general anesthesia was induced. The abdomen was prepared and draped in a sterile fashion so as to expose the entire abdomen. A surgical time out was taken. Abdominal access
was obtained with a 12 mm infra-umbilical Audie Entry. After confirming no injury on entrance, two additional 5mm ports were placed in the suprapubic area just off midline and in the left lower quadrant. The patient was placed in Trendelenberg with
the right slightly up. The appendix was not readily identified, and visualization was fairly poor as the colon and small bowel was fairly dilated. An additional 5 mm port was placed in the right upper quadrant to assist with retraction and
exposure. At this point Dr. Serrano scrubbed in to assist as no other qualified events assistant was available. We began by taking down part of the attachments of the terminal ileum to the right lateral sidewall. We were able to then followed this plane
up the right colic gutter and mobilized the white line of Toldt. We did encounter the abscess cavity but the appendix itself was not readily identified. This extended all the way up to the liver where there was a significant amount of pus
overlying the right lobe of the liver. This was all suctioned out until fairly clear. Working on the posteriolateral aspect of the colon it did appear as if the appendix itself was filleted open. We did identify a few appendicoliths which were
set aside. We did try to traced this proximally but again had difficulty identifying what was the appendix wall versus the wall of the colon. There was some fat proximally that appeared to be separate from the colon which we gently teased off the
colon wall but this did not come easily. We then turned our attention back to the hepatic flexure and identified the tip of the appendix which we then were able to trace in a retrograde manner. We did eventually enter a good plane between the
appendix and the colon and used this to dissected free. Once we are able to follow this we were able to get to the true base of the appendix where here to there was proximal appendicolith as well as small perforation with visible stool leaking from
a small pinpoint hole just distal to this. The mesentery of the appendix was divided using a laparoscopic bipolar energy device. We were able to create a window around the base of the appendix which was taken with a 45 mm purple load on an Endo
PIEDAD stapler. The entire specimen along with the previous identified appendicoliths were placed into retrieval bag and set aside. The right lower quadrant was flooded with saline and irrigated until clear. We then introduced a 15 Georgian round
Shilo drain through the left lower quadrant port across the pelvis and up the right colic gutter. This was secured at the skin with a 2-0 nylon suture and hooked to a KIRSTY suction bulb. Hemostasis was confirmed and the ports were removed under
visualization. The specimen was passed off the field. The umbilical port was closed with a [id number] 0-PDS and the skin for all three ports was closed with interrupted monocryls and covered with dermabond. The patient was awoken from
anesthesia in good condition and transported to the recovery area.
I was the attending physician and performed the procedure with assistance from the RAIL CAR LOADER above and Dr. Serrano. Dr. Serrano's assistance was essential as a second skilled hand was needed for tissue retraction and to help with exposure given the
retrocecal and perforated/contaminated nature of this appendectomy. I was present for all portions of the case excluding skin closure.
Deng Umaña MD
[2024-01-19 15:26] VITALS: BP 152/97
--- NOTE | 2024-01-19 16:04 | W.PN.HOSP.TC ---
Today's Communication/Plan
-
Continue IV antibiotics
Assessment / Plan
Assessment / Plan
CVS: S1-S2 normal
Chest: CTA B/L
Abdomen: Slightly distended, decreased valve sounds. Laparotomy wound stable. KIRSTY drain noted with blood tinged serosanguineous discharge
Denies any chest pain or shortness of breath.
CT
1. ACUTE PERFORATED APPENDICITIS with an adjacent 2.6 cm extraluminal collection of periappendiceal air and a small amount of ascites in the right paracolic gutter.
2. Minimal right upper quadrant perihepatic ascites and pneumoperitoneum.
3. Mildly enlarged prostate gland.
4. Severe discogenic degenerative disease at L4/L5.
# Acute Perforated Appendicitis
Sepsis secondary to the above
Status post laparoscopic appendectomy with washout of intra-abdominal abscess by Dr. Umaña 01/17/2024
Await postop valve recovery
Continue IV fluids
Leukocytosis better
Cultures with E. coli
Continue Zosyn
ID eval appreciated
# ASCVD
No complaints of chest pain, dyspnea.
CABG in 2021 and PTCA with Stent 07/13/23.
Currently on DAPT and will hold Plavix for now as noted above.
Continue ASA uninterrupted.
Continue beta-efrem
Cardiology evaluation noted
# Mild Hyponatremia- Resolved
# Hyperlipidemia- Continue statin
# Severe discogenic degenerative disease at L4/L5- H/O Microdiscectomy L4/L5 2011
# Obesity per BMI
# Mildly enlarged prostate gland- OP urology evaluation
# Ex Smoker
# DVT Prophylaxis: Lovenox
# Code Status: Full
D/W infectious disease
Anticipated Discharge: Within 24 hours
Subjective/Interval History
-
Date of Service: January 19, 2024
Objective Data
-
Labs:
Laboratory Results
01/19/24
06:40
WBC 10.7
Hgb 11.1 L
Hct 32.4 L
Plt Count 212
Sodium 137
Potassium 4.1
Chloride 100
Carbon Dioxide 27
BUN 28 H
Creatinine 1.1
Glucose 89
Calcium 8.1 L
Total Bilirubin 0.5
AST 40
ALT 31
Alkaline Phosphatase 49
Vital Signs:
Vital Signs
Temp Pulse Resp BP Pulse Ox
98.4 F 89 16 152/97 96
01/19/24 15:26 01/19/24 15:26 01/19/24 15:26 01/19/24 15:26 01/19/24 15:26
I&O
01/18/24 01/19/24 01/20/24
06:59 06:59 06:59
Intake Total 1520 / 1520 1590 / 1590 100 / 100
Output Total 1225 / 1225 200 / 200 30 / 30
Balance 295 / 295 1390 / 1390 70 / 70
[2024-01-19] MEDS: LOVENOX 40 MG SC (17:20)
[2024-01-19 23:20] VITALS: BP 125/89
[2024-01-20] MEDS: ZOSYN 100 IV (05:12)
[2024-01-20] MEDS: ULTRAM 50 MG PO ×2 (05:50→16:27)
[2024-01-20 07:06] LABS: Hematocrit 33.6 % (39.0-52.0); Hemoglobin 11.8 g/dL (13.0-18.0); Mean Corp Hgb Conc. 35.1 g/dL (33.0-37.0); Mean Corpuscular Hgb 32.9 pg (27.0-31.0); Mean Corpuscular Volume 93.6 fL (80.0-94.0); Mean Platelet Volume 9.5 fL (7.4-10.4); Platelet Count 232 10^3/uL (130-400); Red Blood Cell Count 3.59 10^6/uL (4.70-6.10); Red Cell Dist. Width 13.2 % (11.5-14.5); White Blood Cell Count 8.3 10^3/uL (4.8-10.8)
[2024-01-20 07:36] LABS: Blood Urea Nitrogen 20 mg/dl (9-20); Calcium 8.5 mg/dl (8.4-10.2); Carbon Dioxide 26 mmol/L (22-30); Chloride 97 mmol/L (98-107); Estimated Creatinine Clearance 79 ml/min; Glucose 100 mg/dl (70-99); Sodium 138 mmol/L (135-145); eGFR > 60.00
[2024-01-20 07:42] LABS: Potassium 4.1 mmol/L (3.5-5.1)
[2024-01-20 07:47] VITALS: BP 141/95
[2024-01-20] MEDS: LOW STRENGTH ASPIRIN 81 MG PO (08:15)
[2024-01-20] MEDS: TOPROL XL 12.5 MG PO (08:15)
[2024-01-20] MEDS: PROTONIX IV 40 MG IV (08:20)
[2024-01-20] MEDS: NSS (PRESERVATIVE FREE) 10 ML IV (08:20)
--- NOTE | 2024-01-20 08:50 | W.PN.GS2 ---
Today's Communication / Plan
-
`
Assessment / Plan
-
Assessment: 58-year-old male POD #3 status post lap appendectomy for perforated appendicitis
AFVSS
Signs of returning GI function but still with distention on exam
Plan: Low residue diet but cautioned to go slow and not overdo it
ID following -Zosyn -culture with pansensitive E. coli
From surgical perspective would favor total of 10 to 14-day course of postoperative antibiotics given severity of perforated appendicitis
KIRSTY removed at bedside today
Okay for discharge from surgical standpoint if continues to tolerate adequate p.o. intake
Outpatient follow-up with Dr. Umaña in 2 to 3 weeks
Subjective Data
-
Date of Service: January 20, 2024
Patient seen and examined
Abdominal distention improving but still feels a bit bloated
Tolerated low residue diet for dinner
Passing flatus regularly, no BMs yet
Postoperative pain controlled
Denies nausea
Objective Data
-
Intake and Output
01/19/24 01/20/24 01/21/24
06:59 06:59 06:59
Intake Total 1590 / 1590 1960 / 1960
Output Total 200 / 200 30 / 30
Balance 1390 / 1390 1930 / 1930
Intake:
Oral fluids 240 / 240 1860 / 1860
IV fluids (Total) 850 / 850
IV piggybacks 500 / 500 100 / 100
Output:
Drain Output (Total) 200 / 200 30 / 30
Left Lower Abdomen Adithya- 200 / 200 30 / 30
Kline
Other:
Number of approximated MODERATE 2
amounts of urine
Number of approximated LARGE 3
amounts of urine
Vital Signs
Temp Pulse Resp BP Pulse Ox
98.8 F 85 16 141/95 98
01/20/24 07:47 01/20/24 07:47 01/20/24 07:47 01/20/24 07:47 01/20/24 07:47
Lab Results
01/20/24 06:28
01/20/24 06:28
Calcium 8.5 mg/dl (8.4-10.2) 01/20/24 06:28
Magnesium 2.2 mg/dl (1.6-2.3) 01/19/24 06:40
Total Bilirubin 0.5 mg/dl (0.2-1.3) 01/19/24 06:40
AST 40 U/L (17-59) 01/19/24 06:40
ALT 31 U/L (0-50) 01/19/24 06:40
Alkaline Phosphatase 49 U/L (38-126) 01/19/24 06:40
Total Protein 5.2 g/dl (6.3-8.2) L 01/19/24 06:40
Albumin 2.9 g/dl (3.5-5.0) L 01/19/24 06:40
Physical Exam
-
NAD AAOx3, resting comfortably in hospital bed
ABD: Softly distended with tympany. Mild tenderness on palpation about incision sites. Incisions with glue dressings.
KIRSTY with scant serous fluid -nonpurulent
[2024-01-20] MEDS: MYLICON 80 MG PO (09:22)
--- NOTE | 2024-01-20 10:37 | W.PN.ID1 ---
Date of Service
Date of Service: January 20, 2024
Today's Communication
-transition Zosyn to po Augmentin 875mg po bid through 01/26/24.
Assessment / Plan
# Acute perforated appendicitis with intra-abd abscess.
# Fever resolved
# Leukocytosis resolved
- 01/17/24 s/p lap appy and washout
- OR cx E. coli
-Blood cultures x 2 negative to date
-transition Zosyn to po Augmentin 875mg po bid through 01/26/24.
#Additional Past Medical History:
CAD s/p CABG x 3, stent
BPH
Abd incisional hernia repair with mesh
L4-L5 microdiscectomy
Vasectomy
Chief Complaint
-: Fever, Leukocytosis and Other (Perforated appendicitis)
Subjective / Review of Systems
Eating well. No abd pain.
Vital Signs / Physical Exam
Vital Signs
Vital Signs
Temp Pulse Resp BP Pulse Ox
98.8 F 85 16 141/95 98
01/20/24 07:47 01/20/24 07:47 01/20/24 07:47 01/20/24 07:47 01/20/24 07:47
Physical Exam
Constitutional: No Acute Distress and Comfortable
Cardiovascular: Regular Rate and S1/S2
Pulmonary: Clear
Gastrointestinal: Non Tender and Non Distended
Objective Data
Lab Data
Lab Results
01/20/24 06:28
01/20/24 06:28
Estimated Creat Clear 79 ml/min 01/20/24 06:28
Lactic Acid Cancelled 01/16/24 14:45
Total Bilirubin 0.5 mg/dl (0.2-1.3) 01/19/24 06:40
AST 40 U/L (17-59) 01/19/24 06:40
ALT 31 U/L (0-50) 01/19/24 06:40
Alkaline Phosphatase 49 U/L (38-126) 01/19/24 06:40
Most recent labs reviewed.
Micro Results:
01/16/24 10:16 Blood Culture - Preliminary
Blood/Venous No Growth in 4 days- Final report to follow
01/16/24 10:16 Blood Culture - Preliminary
Blood/Venous No Growth in 4 days- Final report to follow
01/17/24 13:16 Wound Culture - Preliminary
Abscess Escherichia coli
Gram Stain - Preliminary
01/17/24 13:16 Anaerobic Culture - Preliminary
Abscess Culture pending. Anaerobic cultures are examined after 3
days incubation. Additional information to follow.
01/16/24 23:24 MRSA Screen - Final
Nose No Methicillin Resistant Staphylococcus aureus isolated.
01/15/24 CT a/p: ACUTE PERFORATED APPENDICITIS with an adjacent 2.6 cm extraluminal collection of periappendiceal air and a small amount of ascites in the right paracolic gutter. Minimal right upper quadrant perihepatic ascites and pneumoperitoneum.
01/17/24 Chest/Abd XRAY: Findings consistent with ileus. No bowel obstruction. No overt pneumoperitoneum.
Care Review
Plan reviewed with: Physician (Dr. De Dios)
--- NOTE | 2024-01-20 10:50 | W.PN.HOSP.TC ---
Today's Communication/Plan
-
Advised to ambulate
Watch for bowel movements
Antibiotics
Assessment / Plan
Assessment / Plan
CVS: S1-S2 normal
Chest: CTA B/L
Abdomen: Slightly distended, BS present Laparotomy wound stable. KIRSTY drain noted with blood tinged serosanguineous discharge
Denies any chest pain or shortness of breath.
CT
1. ACUTE PERFORATED APPENDICITIS with an adjacent 2.6 cm extraluminal collection of periappendiceal air and a small amount of ascites in the right paracolic gutter.
2. Minimal right upper quadrant perihepatic ascites and pneumoperitoneum.
3. Mildly enlarged prostate gland.
4. Severe discogenic degenerative disease at L4/L5.
# Acute Perforated Appendicitis
Sepsis secondary to the above
Status post laparoscopic appendectomy with washout of intra-abdominal abscess by Dr. Umaña 01/17/2024
No movements yet
Low residue diet started
Leukocytosis better
Cultures with E. coli-pansensitive
Antibiotics changed to Augmentin
# ASCVD
No complaints of chest pain, dyspnea.
CABG in 2021 and PTCA with Stent 07/13/23.
Currently on DAPT and restart Plavix. Okay with surgeon-discussed today
Continue ASA uninterrupted.
Continue beta-efrem
Cardiology evaluation noted
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
# Mild Hyponatremia- Resolved
# Hyperlipidemia- Continue statin
# Severe discogenic degenerative disease at L4/L5- H/O Microdiscectomy L4/L5 2011
# Obesity per BMI
# Mildly enlarged prostate gland- OP urology evaluation
# Ex Smoker
# DVT Prophylaxis: Lovenox
# Code Status: Full
D/W infectious disease and surgeon
Anticipated Discharge: Within 24 hours
Subjective/Interval History
-
Date of Service: January 20, 2024
Objective Data
-
Labs:
Laboratory Results
01/20/24
06:28
WBC 8.3
Hgb 11.8 L
Hct 33.6 L
Plt Count 232
Sodium 138
Potassium 4.1
Chloride 97 L
Carbon Dioxide 26
BUN 20
Creatinine 1.0
Glucose 100 H
Calcium 8.5
Vital Signs:
Vital Signs
Temp Pulse Resp BP Pulse Ox
98.8 F 85 16 141/95 98
01/20/24 07:47 01/20/24 07:47 01/20/24 07:47 01/20/24 07:47 01/20/24 07:47
I&O
01/19/24 01/20/24 01/21/24
06:59 06:59 06:59
Intake Total 1590 / 1590 1959
Output Total 200 / 200 30 / 30
Balance 1390 / 1390 1929 / 1929
--- NOTE | 2024-01-20 11:00 | CM ---
Patient seen at bedside.
Drain removed. PO abx
PLAN: Home, no needs
Girlfriend to transport
[2024-01-20] MEDS: AUGMENTIN 875 MG/125 MG 1 TABLET PO ×2 (11:14→20:41)
[2024-01-20] MEDS: MAGNESIUM OXIDE 250 MG PO (11:14)
[2024-01-20] MEDS: PLAVIX 75 MG PO (11:14)
[2024-01-20 15:06] VITALS: BP 158/100
[2024-01-20] MEDS: LOVENOX 40 MG SC (17:34)
[2024-01-20 23:11] VITALS: BP 141/76
[2024-01-21] MEDS: ULTRAM 50 MG PO (00:25)
[2024-01-21 07:37] VITALS: BP 163/95
[2024-01-21] MEDS: LOW STRENGTH ASPIRIN 81 MG PO (09:14)
[2024-01-21] MEDS: MAGNESIUM OXIDE 250 MG PO (09:14)
[2024-01-21] MEDS: AUGMENTIN 875 MG/125 MG 1 TABLET PO (09:14)
[2024-01-21] MEDS: TOPROL XL 12.5 MG PO (09:26)
[2024-01-21] MEDS: PLAVIX 75 MG PO (09:26)
[2024-01-21] MEDS: PROTONIX 40 MG PO (09:26)
[2024-01-21] MEDS: THERAGRAN 1 TABLET PO (09:26)
[2024-01-21] MEDS: VITAMIN D3 (cholecalciferol) 125 MCG PO (09:27)
--- NOTE | 2024-01-21 09:30 | W.PN.GS2 ---
Addendum entered and electronically signed by Emile Mcneil MD 01/21/24 09:54:
Patient seen and examined. Agree with assessment plan as documented below.
No new complaints. Tolerating diet. Passing flatus and BMs. Pain well-controlled.
Gen: NAD
Abd: soft, NT/ND, incisions c/d/i - no erythema, ecchymosis or drainage
-- Plan for discharge today on oral antibiotics
-- Outpatient follow-up with Dr. Umaña
Original Note:
Today's Communication / Plan
-
dispo planning
Assessment / Plan
-
Assessment: 58-year-old male POD #4 status post lap appendectomy for perforated appendicitis
AFVSS
Tolerating diet with +flatus/stools
Plan: Continue diet
ID following -Zosyn -culture with pansensitive E. coli
From surgical perspective would favor total of 10 to 14-day course of postoperative antibiotics given severity of perforated appendicitis
PO pain management
Okay for discharge from surgical standpoint
Outpatient follow-up with Dr. Umaña in 2 to 3 weeks
Subjective Data
-
Date of Service: January 21, 2024
Patient seen and examined at bedside with Dr. Mcneil. OOB to chair. Denies n/v. Tolerating diet. Passing flatus and some stools. Pain well managed.
Objective Data
-
Intake and Output
01/20/24 01/21/24 01/22/24
06:59 06:59 06:59
Intake Total 1959
Output Total /
Balance 1929
Intake:
Oral fluids 1859
IV fluids (Total) 0 / 0
IV piggybacks 100 / 100 0 / 0
Output:
Drain Output (Total) 30 / 30
Left Lower Abdomen Adithya-
Kline
Other:
Number of approximated MODERATE 2 4
amounts of urine
Vital Signs
Temp Pulse Resp BP Pulse Ox
98.8 F 78 16 163/95 96
01/21/24 07:37 01/21/24 07:37 01/21/24 07:37 01/21/24 07:37 01/21/24 07:37
Lab Results
01/20/24 06:28
01/20/24 06:28
Calcium 8.5 mg/dl (8.4-10.2) 01/20/24 06:28
Magnesium 2.2 mg/dl (1.6-2.3) 01/19/24 06:40
Total Bilirubin 0.5 mg/dl (0.2-1.3) 01/19/24 06:40
AST 40 U/L (17-59) 01/19/24 06:40
ALT 31 U/L (0-50) 01/19/24 06:40
Alkaline Phosphatase 49 U/L (38-126) 01/19/24 06:40
Total Protein 5.2 g/dl (6.3-8.2) L 01/19/24 06:40
Albumin 2.9 g/dl (3.5-5.0) L 01/19/24 06:40
Physical Exam
-
NAD AAOx3, resting comfortably in hospital bed
ABD: NT,. Mild tenderness on palpation about incision sites. Incisions with intact glue dressings.
--- NOTE | 2024-01-21 09:37 | CM ---
Patient seen at bedside.
po antibiotics.
no needs
PLAN: Home, no needs.
friend to transport
--- NOTE | 2024-01-21 11:00 | W.PN.HOSP.TC ---
Addendum entered and electronically signed by New De Dios MD 01/21/24 15:38:
Dictation- [id number]
Original Note:
Today's Communication/Plan
-
Discharge
Assessment / Plan
Assessment / Plan
CVS: S1-S2 normal
Chest: CTA B/L
Abdomen: Slightly distended, BS present Laparotomy wound stable.
CT
1. ACUTE PERFORATED APPENDICITIS with an adjacent 2.6 cm extraluminal collection of periappendiceal air and a small amount of ascites in the right paracolic gutter.
2. Minimal right upper quadrant perihepatic ascites and pneumoperitoneum.
3. Mildly enlarged prostate gland.
4. Severe discogenic degenerative disease at L4/L5.
# Acute Perforated Appendicitis
Sepsis secondary to the above
Status post laparoscopic appendectomy with washout of intra-abdominal abscess by Dr. Umaña 01/17/2024
Low residue diet started
Had Bms
Cultures with E. coli-pansensitive
Antibiotics changed to Augmentin
Drain out.
# ASCVD
No complaints of chest pain, dyspnea.
CABG in 2021 and PTCA with Stent 07/13/23.
Currently on DAPT and restarted Plavix.
Continue ASA
Continue beta-efrem
Cardiology evaluation noted
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
# Mild Hyponatremia- Resolved
# Hyperlipidemia- Continue statin
# Severe discogenic degenerative disease at L4/L5- H/O Microdiscectomy L4/L5 2011
# Obesity per BMI
# Mildly enlarged prostate gland- OP urology evaluation
# Ex Smoker
# DVT Prophylaxis: Lovenox
# Code Status: Full
D/W RN and surgeon
Pt aware about the Lipid panel.
He admitted he was not taking his Chol meds as he is supposed to as he was walking a lot.
He has an appt with pcp, advised to address. Also discussed HbA1C
More than 30 minutes spent in discharge including
Final examination of the patient
Summarizing hospital stay
Instructions for continuing care to all relevant caregivers
Preparation of discharge records, prescriptions, and referral forms
Total time spent (in minutes): 32 min
Anticipated Discharge: Today
Subjective/Interval History
-
Date of Service: January 21, 2024
Objective Data
-
Vital Signs:
Vital Signs
Temp Pulse Resp BP Pulse Ox
98.8 F 78 16 165/93 96
01/21/24 07:37 01/21/24 09:26 01/21/24 07:37 01/21/24 09:26 01/21/24 07:37
I&O
01/20/24 01/21/24 01/22/24
06:59 06:59 06:59
Intake Total 1959
Output Total
Balance 1929
[2024-01-21 15:30] VITALS: BP 128/89
--- NOTE | 2024-01-21 15:37 | W.DS.TRANS ---
DC Summary - Bid Manager
-
Discharge Instructions:
Discharge Diagnosis/Procedures acute perforated appendicitis with peritoneal
abscess status post laparoscopic appendectomy,
coronary artery disease, high cholesterol,
degenerative changes of the disc
Diet As tolerated
Activity No strenuous activity
Driving Restrictions No driving for 24 hours
Bathing Restrictions OK to Shower
Instructions:
Stand-Alone Forms:
Changes to Home Medications: Yes
Discharge Medications:
DC Medications w/original date entered in eduPad
multivitamin 1 tab PO DAILY Supplement ##0 05/03/21
cholecalciferol (vitamin D3) 125 mcg (5,000 unit) tablet (Vitamin D3) 125 mcg PO DAILY Supplement 01/25/23
magnesium 250 mg tablet 250 mg PO DAILY Electrolyte Repletion 07/12/23
metoprolol succinate 25 mg tablet,extended release 24 hr 12.5 mg PO DAILY Blood Pressure 07/12/23
nitroglycerin 0.4 mg sublingual tablet 0.4 mg sublingual [id number] PRN chest pain 07/12/23
sildenafil 100 mg tablet 100 mg PO DAILYPRN PRN ED 07/12/23
aspirin 81 mg chewable tablet 81 mg PO DAILY Blood Clot Prevention/Tx #0 tabs 07/14/23
amoxicillin 875 mg-potassium clavulanate 125 mg tablet 1 tab PO Q12 Infection #12 tabs 01/21/24
clopidogrel 75 mg tablet 75 mg PO DAILY Blood clot prevention/tx #30 tabs 01/21/24
tramadol 50 mg tablet 50 mg PO Q6HPRN PRN Moderate pain #30 tabs 01/21/24
Home Medication Changes
new
tramadol 50 mg tablet 50 mg PO Q6HPRN PRN Moderate pain #30 tabs 01/21/24
amoxicillin 875 mg-potassium clavulanate 125 mg tablet 1 tab PO Q12 Infection #12 tabs 01/21/24
Pending Results: No
== END 2024-01-21 15:50 | disposition home or self-care (01) | DRG 853 ==
LOC: 2 SOUTH 23:22
PROVIDERS: Clinical Nurse Specialist Family Health; Hospitalist; Surgery; ADMITTING PHYSICIAN Hospitalist; ATTENDING PHYSICIAN Hospitalist; CONSULT PHYSICIAN Internal Medicine Cardiovascular Disease; CONSULT PHYSICIAN Surgery; EMERGENCY PHYSICIAN Student in an Organized Health Care Education/Training Program; FAMILY PHYSICIAN Family Medicine; OTHER PHYSICIAN Internal Medicine Infectious Disease
PROC: 0DTJ4ZZ Resection of Appendix, Percutaneous Endoscopic Approach (ICD-10-PCS; 2024-01-17)
DX: A41.9 Sepsis, unspecified organism (principal); K35.33 Acute appendicitis with perforation, localized peritonitis, and gangrene, with abscess; E87.1 Hypo-osmolality and hyponatremia; I10 Essential (primary) hypertension; I25.10 Atherosclerotic heart disease of native coronary artery without angina pectoris; E78.00 Pure hypercholesterolemia, unspecified; N40.0 Benign prostatic hyperplasia without lower urinary tract symptoms; B96.20 Unspecified Escherichia coli [E. coli] as the cause of diseases classified elsewhere; E66.9 Obesity, unspecified; Z68.30 Body mass index [BMI] 30.0-30.9, adult; Z95.5 Presence of coronary angioplasty implant and graft; Z95.1 Presence of aortocoronary bypass graft; Z79.82 Long term (current) use of aspirin; Z79.02 Long term (current) use of antithrombotics/antiplatelets; Z88.5 Allergy status to narcotic agent
CPT/HCPCS: 88304; 74022; 74177; 80048; 80053; 80061; 81003; 81015; 83036; 83690; 83721; 83735; 85025; 85027; 86850; 86900; 86901; 86920; 87040; 87070; 87071; 87075; 87186; 87205; 96361; 96365; 96367; 99285; C1729; C1776; Q9967